=== PATIENT | male | born 1990 | race Caucasian/White ===

== ENCOUNTER 2016-05-31 16:51 | Emergency (ER) | payer BC, OTHER ==
[~2016-05-31] VITALS: Ht 170.2 cm; Wt 100.9 kg
[~2016-05-31 16:51] MED LIST: ATV1 PO; MRPSR30 PO; RXC5 PO
[2016-05-31 17:10] VITALS: TEMP 36.5; Ht 170.2 cm; Wt 100.9 kg
[2016-05-31] MEDS ORDERED: LISI-461 PO (17:28)
[2016-05-31] MEDS ORDERED: IBUP-1428 PO (17:29)
[2016-05-31] MEDS ORDERED: XYLOCAINE 1%/SOD BICARB 20 ML VIAL INFIL ONE (17:30)
--- NOTE | 2016-05-31 18:07 | EMERGENCY ROOM VISIT NOTE ---
ED Visit Note First contact with patient: 17:12 CHIEF COMPLAINT: Left thumb laceration at work today HISTORY OF PRESENT ILLNESS: Patient is a [id number] 26-year-old white male who presents emergency department for evaluation of a laceration to his left thumb that he sustained just prior to arrival. He cut himself on a sharp piece of metal at work. Bleeding is controlled. He denies the pain, numbness, tingling or weakness. His tetanus is up-to-date. REVIEW OF SYSTEMS: Review of systems as per HPI. All other systems reviewed were negative. At least 6 systems reviewed. PMH: Electronic medical records are reviewed and summarized as above/below. See Problem List. SOCIAL HISTORY: Patient lives at home. Positive chewing tobacco, drinks alcohol socially. PHYSICAL EXAM: Vital Signs: Reviewed Nurse's notes. There is a 1 cm long laceration on the palmar aspect of the left thumb over the MCP crease. The edges are gaping apart. There is no foreign material in the wound and it looks clean. There is no active bleeding. No deep structures such as tendons or nerves are seen in the base of the wound. Extension, flexion and abduction and adduction of the thumb is full and strong. Sensation to pain and light touch is intact. EMERGENCY DEPARTMENT COURSE: Using sterile technique, saline and Betadine cleansing, and 1% lidocaine anesthesia, the laceration was irrigated with saline and then repaired with 3 5-0 nylon sutures. There is no evidence for nerve, vascular or tendon injury. Problem List Medical Problems: (1) Asthma, Unspecified Status: Chronic (2) Hypertension Nos Status: Chronic (3) Lumbar disc herniation with radiculopathy Status: Resolved Surgical Problems: (1) History of lumbar fusion Status: Resolved Current/Historical Medications Scheduled Lisinopril (Zestril), 10 MG PO DAILY Scheduled PRN Ibuprofen (Motrin), 800 MG PO Q8H PRN for Pain Allergies Coded Allergies: No Known Allergies (Verified , 05/31/16) Vital Signs Date Time Temp Pulse Resp B/P Pulse Ox O2 Delivery O2 Flow Rate FiO2 05/31/16 18:29 64 18 132/81 97 Room Air 05/31/16 17:10 36.5 92 18 164/95 96 Room Air Departure Information Impression Primary Impression: Thumb laceration Additional Impression: Work related injury Referrals RV. Ram MD (PCP) Patient Instructions My [facility] Additional Instructions Keep wound clean and dry. Do not allow any crusting or dried blood to accumulate on sutures. If this occurs, use a 1:1 solution of hydrogen peroxide/ water on a Q-tip to clean the wound. Use an antibiotic ointment for 3-4 days, then let wound dry. Suture removal in 12-14 days. Return sooner for any signs of infection (increasing redness, swelling, drainage). Ice and elevate for swelling and pain. Ibuprofen 600 mg and Tylenol 1000 mg every 6 hrs for pain. Problem Qualifiers
[2016-05-31 18:29] VITALS: BP 132/81; PULSE 64; O2SAT 97
== END 2016-05-31 18:37 | disposition home or self-care (01) ==
LOC: C.EDB 16:51 → C.EDD 18:37
DX: S61.012A Laceration without foreign body of left thumb without damage to nail, initial encounter (principal); W45.8XXA Other foreign body or object entering through skin, initial encounter; F17.220 Nicotine dependence, chewing tobacco, uncomplicated; J45.909 Unspecified asthma, uncomplicated; I10 Essential (primary) hypertension; Z98.1 Arthrodesis status; Z79.899 Other long term (current) drug therapy

== ENCOUNTER 2016-06-13 23:21 | Emergency (ER) | payer OTHER, BC ==
[~2016-06-13] VITALS: Ht 170.2 cm; Wt 103.1 kg
[~2016-06-13 23:21] MED LIST changes: -ATV1 PO; +IBUP-1428 PO; +LISI-461 PO; -MRPSR30 PO; -RXC5 PO
[2016-06-13 23:24] VITALS: BP 158/108; PULSE 90; TEMP 36.7; O2SAT 96; Ht 170.2 cm; Wt 103.1 kg
--- NOTE | 2016-06-13 23:36 | EMERGENCY ROOM VISIT NOTE ---
ED Visit Note First contact with patient: 23:27 CHIEF COMPLAINT: Suture removal This patient returns to the ED today for removal of sutures that were placed 13 days ago. There has been no swelling, redness, or drainage from the wound. The patient feels like the laceration is healing well. REVIEW OF SYSTEMS: Head: No headache, injury or neck pain. Skin: No rash, new lesions, or masses. General: No fever or chills, fatigue, loss of appetite , or significant recent weight gain or loss. PMH: The patient is healthy; there is no significant medical or surgical history. SOCIAL HISTORY: Patient lives at home. PHYSICAL EXAM: Vital Signs: Reviewed Nurse's notes. There is a sutured wound on the palmar aspect of the left thumb with no signs of infection. There is no erythema, swelling, or tenderness. EMERGENCY DEPARTMENT COURSE: The sutures were removed without any difficulty and there was no separation of the wound edges. DIAGNOSIS: Healing laceration and suture removal DISCHARGE INSTRUCTIONS AND TREATMENT: Wash any remaining crusts off of the wound today and resume your normal activities. Problem List Medical Problems: (1) Asthma, Unspecified Status: Chronic (2) Hypertension Nos Status: Chronic (3) Lumbar disc herniation with radiculopathy Status: Resolved Surgical Problems: (1) History of lumbar fusion Status: Resolved Current/Historical Medications Scheduled Lisinopril (Zestril), 10 MG PO DAILY Scheduled PRN Ibuprofen (Motrin), 800 MG PO Q8H PRN for Pain Allergies Coded Allergies: No Known Allergies (Verified , 06/13/16) Vital Signs Date Time Temp Pulse Resp B/P Pulse Ox O2 Delivery O2 Flow Rate FiO2 06/13/16 23:24 36.7 90 18 158/108 96 Room Air Departure Information Impression Primary Impression: Encounter for removal of sutures Referrals No Doctor, Assigned (PCP) [facility]
== END 2016-06-13 23:39 | disposition home or self-care (01) ==
LOC: C.EDB 23:22
DX: Z48.02 Encounter for removal of sutures (principal); S61.012D Laceration without foreign body of left thumb without damage to nail, subsequent encounter; X58.XXXD Exposure to other specified factors, subsequent encounter; J45.909 Unspecified asthma, uncomplicated; I10 Essential (primary) hypertension; Z98.1 Arthrodesis status; Z79.899 Other long term (current) drug therapy

== ENCOUNTER 2023-06-27 11:09 | Inpatient (IN) ==
--- NOTE | 2023-06-27 11:34 | Emergency Department Note ---
Impression & Plan Atrial fibrillation with rapid ventricular response, Leukocytosis, Hypokalemia ED Provider Note NAME: WADE CHATMAN AGE: 33 SEX: M : 1990 ARRIVES VIA: Walk-In INFORMANT: Patient ED PROVIDER(S): Eugene Mccormick DO CHIEF COMPLAINT: cough and shortness of breath HPI: Patient is a 33-year-old male with a past medical history of depression, eczema, anxiety, hypertension and asthma who presents to the ER for symptoms that initially started on with a fever and a cough. He notes he has not had a fever since then. He has had some shortness of breath and feels his heart racing. He is winded with any movement. Does have a history of hypertension. He does drink alcohol fairly regularly. Denies any headache or change in vision. No chest pain but does have shortness of breath. No dysuria urgency or frequency. Denies any history of diabetes, hyperlipidemia or smoking currently. Last smoked about 10 years ago. Does have hypertension. No recent trips, travel, swelling of his calfs, history of blood clots, or coughing up blood. ADDITIONAL HISTORY OBTAINED: Per HPI Chronic Medical/Social Conditions Affecting Care: Per HPI PAST MEDICAL HISTORY:See Below PAST SURGICAL HISTORY:See Below FAMILY HISTORY:See Below SOCIAL HISTORY:See Below HOME MEDICATIONS:See Below ALLERGIES:See Below VITALS:See Below PHYSICAL EXAMINATION: GENERAL: Sitting up in bed, alert, well appearing, well nourished, no distress, non-toxic EYE EXAM: normal conjunctiva. OROPHARYNX: mucous membranes are moist NECK: supple, no nuchal rigidity, no adenopathy, non-tender LUNGS: Clear to auscultation. Normal chest wall mechanics HEART: Tachycardic and irregular regular, S1 normal and S2 normal ABDOMEN: abdomen soft, non-tender, normo-active bowel sounds, no masses, no rebound or guarding. BACK: Back is symmetrical on inspection and there is no deformity, no midline tenderness, no CVA tenderness. SKIN: no rashes and no bruising UPPER EXTREMITIES: upper extremities are grossly normal. LOWER EXTREMITIES: No pitting edema. Calves are equal bilaterally NEURO EXAM: Normal sensorium, cranial nerves II-XII grossly intact, normal speech, no gross weakness of arms, no gross weakness of legs. MEDICAL DECISION MAKING: Patient is a 33-year-old male who presents ER for above-stated complaint. IV was established blood work was obtained. Labs show leukocytosis of 21,000. No significant anemia. BMP with mild hypokalemia 3.3. Bilirubin was unremarkable. Troponin was negative. CRP up at 2.3. Pro-Dustin was normal. Alcohol negative. Tox was negative. Chest x-ray was negative. Patient was given IV fluids and following this he was placed on Cardizem drip and given a bolus. Heart rate trended down to the 130s from 180s. With the leukocytosis to cover with a dose of IV antibiotics. Question of this secondary to the steroid injections but cannot be certain. Discussed case with the hospitalist for further evaluation management treatment. Consults/Care Managements Discussions: Per MDM Triage Nursing notes reviewed. Limited review of prior medical records performed Vital Signs: reviewed and remarkable for tachycardic Differential diagnosis: Differential diagnoses includes but is not limited to pneumonia, bronchitis, COPD/Asthma exacerbation, pneumothorax, pulmonary embolism, congestive heart failure, acute coronary syndrome ER treatment provided: See below Diagnostics interpreted by me include EKG and cardiac monitoring as listed below: -Cardiac Monitoring: An order was placed for continuous cardiac monitoring. The monitor shows a rate of 180 with sinus rhythm. -ECG: A-fib rate of 182 Normal axis and no PVCs QTc 410 -Laboratory studies:Interpreted by me as stated above in MDM and shown below. Imaging studies: Xrays: As interpreted by me: Portable AP upright 1 view of the chest shows no focal infiltrate CTs show: none Procedures:none Critical Care: I have personally spent 35 minutes of critical care time in the direct management of this patient. This includes bedside care, interpretation of diagnostic studies, and testing, discussion with consultants, patient, and family members, and other required patient management activities. This 35 minutes is in excess of all separately billable procedures. Past Med/Surg History Problem List (Updated 06/27/23 @ 15:58 by Eugene Mccormick DO) Hypokalemia (Acute) Leukocytosis (Acute) Atrial fibrillation with rapid ventricular response (Acute) Pneumonia Leukocytosis Hypokalemia Atrial fibrillation with RVR Rash and nonspecific skin eruption Daytime somnolence Snoring Depression Non-alcoholic fatty liver disease Eczema Chronic thumb pain, bilateral Anxiety Hypertension (Acute) Allergic rhinitis (Acute) Asthma (Acute) Medical History Abdominal pain Allergic rhinitis Anxiety Asthma Depression Hypertension Strabismus Surgical History H/O laminectomy H/O sinus surgery History of back surgery Family History Grandfather (Maternal) Pancreatic cancer Uncle Myocardial infarction Grandfather (Paternal) Stroke Hypertension Father Hypertension Mother Atrial fibrillation Denies family history of Ovarian cancer Prostate cancer Breast cancer Colorectal cancer Social History (Updated 03/08/23 @ 16:03 by Kaelyn Guardado) Smoking Status: Former smoker Second Hand Exposure: No; Do You Dip or Chew Tobacco: No; Hx Alcohol Use: Yes Alcohol type: hard liquor Alcohol Intake Frequency: 4 or More x per/Week Hx Substance Use: No Preferred Language: Spanish Communication Ability: Effective Visual Impairment: Limited Hearing Ability: Normal Beater Room Supervisor Required: No Beliefs That Will Affect Care: None marital status: Current Living Situation: Spouse current occupational status: employed Feels Safe at Home: Yes Childhood Exposure to Second-Hand Smoke: Yes caffeine: Yes Dental Care, Regularly: Yes Physical Activity Frequency: Does not Exercise Seatbelt Use: always Sunscreen Use: Yes Assistive Devices: Glasses Allergies Allergies Allergy/AdvReac Type Severity Reaction Status Date / Time No Known Allergies Allergy Mild Verified 06/27/23 13:52 Home Meds Previous Rx's Medication Instructions Recorded triamcinolone acetonide 0.5 % 1 applic topical BID PRN Skin 03/08/23 topical ointment Irritation #15 grams valsartan 160 mg tablet 160 mg PO DAILY #30 tabs 03/31/23 Results & Data (ED) Vital Signs Vital Signs - 24 hr 06/27/23 11:10 06/27/23 11:18 06/27/23 11:18 Temperature 35.8 C L Temperature Source Temporal Artery Scan Pulse Rate 82 Pulse Rate [Apical] 185 H Pulse Rhythm Regular Pulse Strength Normal Respiratory Rate 20 16 Respiratory Effort / Characteristics Non-Labored Non-Labored Respiratory Depth Normal Normal Respiratory Pattern Regular Blood Pressure 144/101 H Blood Pressure [Right Arm] 130/97 Blood Pressure Mean 115 Blood Pressure Mean [Right Arm] 108 Blood Pressure Position Sitting Pulse Oximetry 95 96 96 Oxygen Delivery Method Room Air Room Air Room Air Sepsis Recent Fever Within 48 Hours No Sepsis New/Unexplained Change in Mental Status N/A Sepsis Action Taken by Nursing No Action Required 06/27/23 11:18 06/27/23 11:27 06/27/23 11:28 Temperature Temperature Source Pulse Rate 188 H Pulse Rate [Apical] Pulse Rhythm Pulse Strength Respiratory Rate Respiratory Effort / Characteristics Respiratory Depth Respiratory Pattern Blood Pressure Blood Pressure [Right Arm] Blood Pressure Mean Blood Pressure Mean [Right Arm] Blood Pressure Position Pulse Oximetry 96 96 Oxygen Delivery Method Room Air Room Air Sepsis Recent Fever Within 48 Hours Sepsis New/Unexplained Change in Mental Status Sepsis Action Taken by Nursing 06/27/23 11:30 06/27/23 11:33 06/27/23 11:36 Temperature 37.1 C 37.1 C Temperature Source Axillary Axillary Pulse Rate 187 H Pulse Rate [Apical] Pulse Rhythm Pulse Strength Respiratory Rate 23 Respiratory Effort / Characteristics Respiratory Depth Respiratory Pattern Blood Pressure 130/97 Blood Pressure [Right Arm] Blood Pressure Mean 108 Blood Pressure Mean [Right Arm] Blood Pressure Position Pulse Oximetry 96 Oxygen Delivery Method Room Air Sepsis Recent Fever Within 48 Hours Sepsis New/Unexplained Change in Mental Status Sepsis Action Taken by Nursing 06/27/23 13:00 Temperature Temperature Source Pulse Rate 148 H Pulse Rate [Apical] Pulse Rhythm Pulse Strength Respiratory Rate 21 Respiratory Effort / Characteristics Respiratory Depth Respiratory Pattern Blood Pressure 140/90 Blood Pressure [Right Arm] Blood Pressure Mean 106 Blood Pressure Mean [Right Arm] Blood Pressure Position Pulse Oximetry 93 Oxygen Delivery Method Room Air Sepsis Recent Fever Within 48 Hours Sepsis New/Unexplained Change in Mental Status Sepsis Action Taken by Nursing Laboratory Data 06/27/23 11:27 06/27/23 11:27 Lab Results 06/27/23 Range/Units 11:27 WBC 21.11 H (4.8-10.8) K/ul RBC 5.34 (4.70-6.10) M/uL Hgb 16.3 (14.0-18.0) g/dl Hct 46.7 (42.0-52.0) % MCV 87.5 (80.0-100.0) fL MCH 30.5 (25.0-34.0) pg MCHC 34.9 (32.0-36.0) g/dL RDW Std Deviation 41.1 (36.4-46.3) fL RDW Coeff of Chanel 13.1 (11.5-14.5) % Plt Count 283 (130-400) K/uL MPV 9.5 (9.4-12.4) fL Immature Gran % (Auto) 0.6 % Neut % (Auto) 79.9 % Lymph % (Auto) 9.8 % [place] % (Auto) 9.3 % Eos % (Auto) 0.1 % Baso % (Auto) 0.3 % Neut # (Auto) 16.86 H (1.40-6.50) K/uL Lymph # (Auto) 2.06 (1.20-3.40) K/uL [place] # (Auto) 1.97 H (0.11-0.59) K/uL Eos # (Auto) 0.02 (0.00-0.50) K/uL Baso # (Auto) 0.07 (0.00-0.20) K/uL Immature Gran # (Auto) 0.13 (0.01-0.20) K/uL Sodium 141 (136-145) mmol/L Potassium 3.3 L (3.5-5.1) mmol/L Chloride 107 (98-107) mmol/L Carbon Dioxide 25 (21-32) mmol/L Anion Gap 9 (3-11) BUN 15 (6-23) mg/dl Creatinine 1.06 (0.6-1.4) mg/dl Est Cr Clr Drug Dosing 122.8 ml/min Est GFR ( Amer) 105.6 ml/min Est GFR (Non-Af Amer) 91.1 ml/min BUN/Creatinine Ratio 14.2 (10-20) Glucose 114 H (70-99(Fasting)) mg/dl Calcium 9.2 (8.6-10.3) mg/dl Magnesium 2.0 (1.7-2.4) mg/dl Total Bilirubin 0.9 (0.2-1.0) mg/dl AST 46 H (13-39) U/L ALT 70 H (7-52) U/L Alkaline Phosphatase 59 (34-104) U/L Troponin I High Sens 18.3 (0-20) pg/ml C-Reactive Protein 2.32 H (0-0.5) mg/dl Total Protein 7.1 (6.0-8.3) gm/dl Albumin 4.2 (3.4-5.0) gm/dl Globulin 2.9 (2.5-4.0) gm/dl Albumin/Globulin Ratio 1.4 (0.9-2) Lipase 12 (11-82) U/L Procalcitonin 0.04 (0-0.5) ng/ml TSH 4.095 (0.300-4.500) uIu/ml Adenovirus (PCR) Not Detected (NotDetected) B. pertussis DNA (PCR) Not Detected (NotDetected) B.parapertussis DNA PCR Not Detected (NotDetected) C. pneumoniae DNA (PCR) Not Detected (NotDetected) Coronavirus OC43 (PCR) Not Detected (NotDetected) Coronavirus HKU1 (PCR) Not Detected (NotDetected) Coronavirus 229E (PCR) Not Detected (NotDetected) SARS-CoV-2 (PCR) Not Detected (NotDetected) Coronavirus NL63 (PCR) Not Detected (NotDetected) Human Metapneumovir PCR Not Detected (NotDetected) Influenza Type A (PCR) Not Detected (NotDetected) Influenza Type B (PCR) Not Detected (NotDetected) M. pneumoniae (PCR) Not Detected (NotDetected) Parainfluenza 1 (PCR) Not Detected (NotDetected) Parainfluenza 2 (PCR) Not Detected (NotDetected) Parainfluenza 3 (PCR) Not Detected (NotDetected) Parainfluenza 4 (PCR) Not Detected (NotDetected) RSV (PCR) Not Detected (NotDetected) Entero/Rhino (PCR) Not Detected (NotDetected) Administered Medications Diltiazem HCl 125 mg/ Dextrose 125 mls @ 5 mls/hr IV .Q24H [facility]; Protocol Stop: 07/27/23 11:29 Last Admin: 06/27/23 11:47 Dose: 5 mg/hr, 5 mls/hr Documented By: ERICKA Co-signed By: VANGIE Discontinued Medications Diltiazem HCl (Diltiazem Hcl 5 Mg/Ml 5 Ml Vial) 10 mg IV NOW STA Stop: 06/27/23 11:29 Last Admin: 06/27/23 11:37 Dose: 10 mg Documented By: VANGIE Co-signed By: ERICKA Ceftriaxone Sodium (Rocephin) 2,000 mg in 50 mls @ 100 mls/hr IV NOW STA Stop: 06/27/23 13:57 Last Infusion: 06/27/23 14:32 Dose: Infused Documented By: Admin: 06/27/23 14:00 Dose: 100 mls/hr Documented By: MELANIE Sodium Chloride (Nss) 1,000 mls @ 999 mls/hr IV .Q1H1M ONE Stop: 06/27/23 14:29 Last Infusion: 06/27/23 15:35 Dose: Infused Documented By: Admin: 06/27/23 14:01 Dose: 999 mls/hr Documented By: MELANIE Miscellaneous (Stat Iv Infusion Titration Per Protocol) 1 each N/A NOW STA Stop: 06/27/23 11:29 Last Admin: 06/27/23 11:38 Dose: Not Given Documented By: ES Potassium Chloride (Potassium Chloride Crtab 20 Meq Tabcr) 40 meq PO NOW STA Stop: 06/27/23 13:28 Last Admin: 06/27/23 14:00 Dose: 40 meq Documented By: MELANIE Imaging Data Radiologist's Impression: Chest X-Ray 06/27/23 11:23 XR chest 1V portable HISTORY: Chest pain, nonspecific COMPARISON: Chest 02/22/2014. FINDINGS: No pneumothorax. No pleural effusions. The cardiac silhouette is borderline enlarged. This may be accentuated by the AP portable technique. The left lung is clear. No evidence for pulmonary edema. No acute fractures. Mild interstitial thickening at the right lung base. IMPRESSION: Mild interstitial thickening at the right lung base. This could be due to the low lung volumes or a mild interstitial pneumonitis. ACT 112: Negative or not required by law. Electronically signed by: Adalid Sparks M.D. 06/27/2023 12:10 PM Discharge Plan Visit Data Chief Complaint: Cardiac Assessment Stated Complaint: SOB, ILLNESS, CHEST PRESSURE ED Provider: Eugene Mccormick Discharge Problem: Atrial fibrillation with rapid ventricular response, Leukocytosis, Hypokalemia Patient Disposition: Admitted As Inpatient Discharge Instructions Interventions: ED Discharge Assessment Last Done: 06/27/23 14:45 Discharge Problem: Leukocytosis Qualifiers: Leukocytosis type: unspecified Qualified Code(s): D72.829 - Elevated white blood cell count, unspecified
[2023-06-27] MEDS: dilTIAZem HCl 5 MG/ML 5 ML VIAL IV STA (11:37)
[2023-06-27] MEDS: STAT IV Infusion **Titration per Protocol STA (11:38)
[2023-06-27] MEDS: dilTIAZem HCL 125 MG in DEXTROSE 5% 100 ML IV SCH (11:47)
[2023-06-27 11:49] LABS: Basophils # (auto) 0.07 K/uL (0.00-0.20); Basophils % (auto) 0.3 %; Eosinophils # (auto) 0.02 K/uL (0.00-0.50); Eosinophils % (auto) 0.1 %; Hematocrit (blood only) 46.7 % (42.0-52.0); Hemoglobin 16.3 g/dl (14.0-18.0); Immature Granulocytes # (auto) 0.13 K/uL (0.01-0.20); Immature Granulocytes % (auto) 0.6 %; Lymphocytes # (auto) 2.06 K/uL (1.20-3.40); Lymphocytes % (auto) 9.8 %; Mean Corpuscular Hemoglobin 30.5 pg (25.0-34.0); Mean Corpuscular Hgb Conc 34.9 g/dL (32.0-36.0); Mean Corpuscular Volume 87.5 fL (80.0-100.0); Mean Platelet Volume 9.5 fL (9.4-12.4); Monocytes # (auto) 1.97 K/uL (0.11-0.59); Monocytes % (auto) 9.3 %; Neutrophils # (auto) 16.86 K/uL (1.40-6.50); Neutrophils % (auto) 79.9 %; Platelet Count 283 K/uL (130-400); RDW Coefficient of Variation 13.1 % (11.5-14.5); RDW Standard Deviation 41.1 fL (36.4-46.3); Red Blood Count 5.34 M/uL (4.70-6.10); White Blood Count 21.11 K/ul (4.8-10.8)
[2023-06-27 12:05] LABS: Albumin Globulin Ratio 1.4 (0.9-2); Albumin Level 4.2 gm/dl (3.4-5.0); BUN Creatinine Ratio 14.2 (10-20); Bilirubin,Total 0.9 mg/dl (0.2-1.0); Calcium 9.2 mg/dl (8.6-10.3); Creatinine Clr Calc Pharmacy 122.8 ml/min; Est GFR (African American) 105.6 ml/min; Est GFR (Non-African American) 91.1 ml/min; Globulin 2.9 gm/dl (2.5-4.0); Potassium 3.3 mmol/L (3.5-5.1); Total Protein 7.1 gm/dl (6.0-8.3)
[2023-06-27 12:10] LABS: Troponin I High Sensitivity 18.3 pg/ml (0-20)
--- NOTE | 2023-06-27 12:12 | XRay Report ---
XR chest 1V portable HISTORY: Chest pain, nonspecific COMPARISON: Chest 02/22/2014. FINDINGS: No pneumothorax. No pleural effusions. The cardiac silhouette is borderline enlarged. This may be accentuated by the AP portable technique. The left lung is clear. No evidence for pulmonary ed claudia. No acute fractures. Mild interstitial thickening at the right lung base. IMPRESSION: Mild interstitial thickening at the right lung base. This could be due to the low lung volumes or a m ild interstitial pneumonitis. ACT 112: Negative or not required by law. Electronically signed by: Adalid Sparks M.D. 06/27/2023 12:10 PM
[2023-06-27 12:38] LABS: Adenovirus PCR Not Detected (NotDetected); Bordetella parapertussis PCR Not Detected (NotDetected); Bordetella pertussis PCR Not Detected (NotDetected); Chlamydia pneumoniae PCR Not Detected (NotDetected); Coronavirus 229E PCR Not Detected (NotDetected); Coronavirus CoV-2 (COVID19)PCR Not Detected (NotDetected); Coronavirus HKU1 PCR Not Detected (NotDetected); Coronavirus NL63 PCR Not Detected (NotDetected); Coronavirus OC43PCR Not Detected (NotDetected); Human Metapneumovirus PCR Not Detected (NotDetected); Influenza A PCR Not Detected (NotDetected); Influenza B PCR Not Detected (NotDetected); Mycoplasma pneumoniae PCR Not Detected (NotDetected); Parainfluenza Virus 1 PCR Not Detected (NotDetected); Parainfluenza Virus 2 PCR Not Detected (NotDetected); Parainfluenza Virus 3 PCR Not Detected (NotDetected); Parainfluenza Virus 4 PCR Not Detected (NotDetected); Respiratory Syncytial VirusPCR Not Detected (NotDetected); Rhinovirus/Enterovirus PCR Not Detected (NotDetected)
--- NOTE | 2023-06-27 12:52 | Electrocardiogram Report ---
Test Reason : Blood Pressure : / mmHG Vent. Rate : 182 BPM Atrial Rate : 000 BPM P-R Int : 000 ms QRS Dur : 090 ms QT Int : 236 ms P-R-T Axes : 000 034 -69 degrees QTc Int : 410 ms Atrial fibrillation with rapid ventricular response Nonspecific T wave abnormality Abnormal ECG When compared with ECG of 22-FEB-2014 10:56, Atrial fibrillation has replaced Sinus rhythm Vent. rate has increased BY 72 BPM Confirmed by Marcus Lira ([id number]) on 06/27/2023 12:51:52 PM Referred By: Confirmed By:Marcus Lira
--- NOTE | 2023-06-27 13:00 | History & Physical Report ---
Date of Service June 27, 2023 Assessment & Plan (1) Atrial fibrillation with RVR: Plan: Patient presented for worsening SOB, productive cough, hemoptysis, and fatigue that began on 06/22 EKG on arrival revealed atrial fibrillation with RVR at 182bpm No prior history of atrial fibrillation to the patient's knowledge Troponin WNL TSH WNL D-dimer (+); CTA w/o PE Echocardiogram ordered, pending Patient is not currently on anticoagulation [id number] score: 1 (hx of HTN); potentially 2 in the setting of acute HF (pulmonary edema on CTA) Will plan to continue diltiazem drip until rate controlled, then may need to transition to metoprolol tartrate p.o. DDx: Pneumonia provoking new onset A-fib, upper respiratory infection, PE, alcohol use, and idiopathic atrial fib, among other etiologies Cardiology consulted A.m. CBC, CMP, CRP, Mag, A1c (2) Pneumonia: Plan: Leukocytosis at 21.11 with neutrophil predominance; afebrile Patient does note he had a low-grade fever on 06/22 (around 99.5 F at home) Unclear if this is secondary to a steroid injection patient received in his right shoulder on Friday 06/23, or an underlying infection BioFire negative Procalcitonin WNL Elevated CRP at 2.32 Sputum culture ordered, pending Rocephin 2000 mg IV q24h Azithromycin 500 mg IV q24h; QTc 410 Follow blood cultures (3) Hypokalemia: Plan: Mild; K 3.3 on arrival Potassium supplementation 40mEq p.o. given Recheck a.m. CMP (4) Hypertension: Plan: Hold valsartan for now Will start patient on metoprolol tartrate 25 mg p.o. q6h (5) Asthma: Plan: Hx of asthma as a child, but patient denies requiring an albuterol inhaler in the past 20 years or so (6) Heart failure with acute decompensation, type unknown: (7) Alcohol use disorder: Plan Disposition: Admit to PCU telemetry Full code AHA diet VTE PPx: Heparin IV History of Present Illness Chief Complaint: Cardiac assessment Primary Care Provider: PRATEEK Robins is a 33-year-old male with PMH of asthma, HTN, anxiety, depression, eczema, and allergic rhinitis. He presented for SOB, fatigue, cough, and chest pressure on 06/26. He claims that it feels like an "elephant is sitting on his chest". Patient reports that his symptoms started on morning 06/22 when he developed a low-grade fever at 99.5 F at home. He also had productive cough (yellow sputum production). Patient then received a steroid injection in his right shoulder on Tuesday. He felt that the fever was going away, but then developed difficulty breathing Tuesday night and by Tuesday morning it felt like a "elephant was sitting on his chest". Patient also endorses multiple episodes of hemoptysis over the weekend; endorses bright red blood in his cough. He has been taking DayQuil and NyQuil for his symptoms. Patient endorses both SOB at rest and with exertion, and he reports that it feels like he is "running a marathon" whenever he does simple things such as walking. No personal history of atrial fibrillation, TX, DVT/PE, diabetes, stroke, CHF, hyperlipidemia, or vascular disease to his knowledge. Patient only takes valsartan on a regular basis; last took the morning of 06/26. He did not take any Tylenol for his fever . He does occasionally take Benadryl for his allergies and ibuprofen as needed for aches and pains (pain management for his herniated disc). He denies ibuprofen use in the past week. Patient does have a history of asthma as a child, but has not needed his albuterol inhaler in around 20 years. He reports that coughing hurts his lower rib cages bilaterally. 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 Patient also has 2 children at home (ages 10 and 13 years old). No supplemental oxygen use at home. No CPAP at night, but the patient does have a sleep study upcoming. Patient is a former tobacco cigarette smoker, but quit 14 years ago; he also used to chew snuff. Patient does endorse alcohol use, with his last drink being on Friday 06/23; he reports that he drank 2 shots of whiskey and some beers; sometimes drinks multiple days per week. Patient is tachycardic at 148 bpm at time of admission; SpO2 93% on RA. ED course: Diltiazem 10 mg IV Diltiazem drip IV NSS 1000 mL IV ROS: Patient endorses low-grade fever (resolved), chills, productive cough (yellow), hemoptysis, chest pressure, SOB at rest and with exertion, pleuritic CP, and wheezing. Patient denies dizziness, lightheadedness, ROSARIO, changes in vision, chest pain, chest palpitations, abdominal pain, N/V/D, change in urinary/bowel habits, burning with urination, blood in stool, or N/T/pain in arms or legs. Allergies Allergy/AdvReac Type Severity Reaction Status Date / Time No Known Allergies Allergy Mild Verified 06/27/23 13:52 Home Medications Medication Instructions Recorded Confirmed Type triamcinolone acetonide 0.5 % 1 applic topical BID PRN Skin 03/08/23 06/27/23 Rx topical ointment Irritation #15 grams valsartan 160 mg tablet 160 mg PO DAILY #30 tabs 03/31/23 06/27/23 Rx Past Med/Surg History Problem List (Updated 06/28/23 @ 11:13 by Kiran Rogers MD) Alcohol use disorder Heart failure with acute decompensation, type unknown Hypokalemia (Acute) Leukocytosis (Acute) Atrial fibrillation with rapid ventricular response (Acute) Pneumonia Leukocytosis Hypokalemia Atrial fibrillation with RVR Rash and nonspecific skin eruption Daytime somnolence Snoring Depression Non-alcoholic fatty liver disease Eczema Chronic thumb pain, bilateral Anxiety Hypertension (Acute) Allergic rhinitis (Acute) Asthma (Acute) Medical History Abdominal pain Allergic rhinitis Anxiety Asthma Depression Hypertension Strabismus Surgical History H/O laminectomy H/O sinus surgery History of back surgery Family History Grandfather (Maternal) Pancreatic cancer Uncle Myocardial infarction Grandfather (Paternal) Stroke Hypertension Father Hypertension Mother Atrial fibrillation Denies family history of Ovarian cancer Prostate cancer Breast cancer Colorectal cancer Social History (Updated 03/08/23 @ 16:03 by Kaelyn Guardado) Smoking Status: Former smoker Second Hand Exposure: No; Do You Dip or Chew Tobacco: No; Hx Alcohol Use: Yes Alcohol type: hard liquor Alcohol Intake Frequency: 4 or More x per/Week Hx Substance Use: No Preferred Language: Portuguese Communication Ability: Effective Visual Impairment: Limited Hearing Ability: Normal Lag Screwer Required: No Beliefs That Will Affect Care: None marital status: Current Living Situation: Spouse current occupational status: employed Other Information That Helps Us Care for You: No Feels Safe at Home: Yes Childhood Exposure to Second-Hand Smoke: Yes caffeine: Yes Dental Care, Regularly: Yes Physical Activity Frequency: Does not Exercise Seatbelt Use: always Sunscreen Use: Yes Assistive Devices: Glasses Review of Systems Review of Systems: See HPI above Physical Exam Physical Exam: General: Mild respiratory distress; non-toxic appearing; well-nourished; anxious; cooperative; SpO2 96% on RA HEENT: normocephalic, atraumatic; no scleral icterus; PERRLA; strabismus; moist mucus membrane; vision and hearing grossly intact Neck: supple; no lymphadenopathy; trachea midline Skin: Diaphoretic; warm, without signs of tenting; no cyanosis; no rashes, bruising, lesions, or erythema noted CV: chest wall NTP; irregularly irregular rhythm tachycardic around 160 bpm; S1/S2 normal; no murmurs/rubs/gallops; pulses intact and symmetric at radial, DP, and PT Lungs: Mild respiratory distress; dry cough; symmetrical chest wall expansion; diminished breath sounds in the lower lung cuab bilaterally; mild expiratory wheeze ABD: Soft, NTP; BS present; no rebound/guarding; no distention MSK: no tics or fasciculations; +1 pitting edema noted in the LEs b/l, nonerythematous Neuro: A&Ox3; normal mood and affect; fluent speech; no focal deficits; sensation grossly intact in the LEs b/l Results & Data Results & Data Vital Signs (Past 12 Hours) Vital Signs Temp Pulse Pulse Resp BP BP Pulse Ox 06/27/23 11:36 37.1 C 06/27/23 11:33 37.1 C 06/27/23 11:28 188 H 06/27/23 11:27 96 06/27/23 11:18 96 06/27/23 11:18 185 H 16 130/97 96 06/27/23 11:18 96 06/27/23 11:10 35.8 C L 82 20 144/101 H 95 O2 Del Method 06/27/23 11:36 06/27/23 11:33 06/27/23 11:28 06/27/23 11:27 Room Air 06/27/23 11:18 Room Air 06/27/23 11:18 Room Air 06/27/23 11:18 Room Air 06/27/23 11:10 Room Air Laboratory Results Abnormal lab results 06/27/23 Range/Units 11:27 WBC 21.11 H (4.8-10.8) K/ul Neut # (Auto) 16.86 H (1.40-6.50) K/uL [place] # (Auto) 1.97 H (0.11-0.59) K/uL Potassium 3.3 L (3.5-5.1) mmol/L Glucose 114 H (70-99(Fasting)) mg/dl AST 46 H (13-39) U/L ALT 70 H (7-52) U/L Diagnostic Findings Chest X-Ray 06/27/23 11:23 XR chest 1V portable HISTORY: Chest pain, nonspecific COMPARISON: Chest 02/22/2014. FINDINGS: No pneumothorax. No pleural effusions. The cardiac silhouette is borderline enlarged. This may be accentuated by the AP portable technique. The left lung is clear. No evidence for pulmonary edema. No acute fractures. Mild interstitial thickening at the right lung base. IMPRESSION: Mild interstitial thickening at the right lung base. This could be due to the low lung volumes or a mild interstitial pneumonitis. ACT 112: Negative or not required by law. Electronically signed by: Adalid Sparks M.D. 06/27/2023 12:10 PM ECG Additional Comments: EKG on arrival revealed atrial fibrillation with RVR at 182bpm; QTc 410 Code Status & VTE Plan Code Status Full code VTE Prophylaxis Plan VTE Prophylaxis will be ordered: Yes Supervising Physician Co-Signing Physician Notes I personally saw and examined the patient. I independently reviewed the labs, EKG, imaging, problem list, medication list, past medical history and family history. I verified all acosta points and agree with Adalid Cramer PA-C with the following exceptions and/or additions: 33 year old male presents to the ER with chest pain and shortness of breath. Fever and cough yellow sputum . Tuesday steroid injection. Tuesday chest pressure and shortness of breath especially on exertion started. O/E Anxious appearing, A&Ox3, HS increased rate, irregular rhythm, no murmurs, Chest bibasal crackles, Abdo SNT, trace pedal edema b/l equal A/P A. fib RVR - appears inappropriate rate. ?exacerbated by viral illness, steroid injection and alcohol. Given heart failure (although this may not be chronic) he scores 2 for [id number] in addition we have not been very successful with rate control despite metoprolol and IV diltiazem therefore will start heparin to as plan is looking more like cardioversion in which case he needs to be on anticoagulation irregardless of [id number]. TSH WNL. TTE ordered for tomorrow once rates are improved. Acute heart failure with unknown ejection fraction- suspect rate related and should get better with just rate control as long as TTE normal. Give ongoing shortness of breath despite better rate though will give a dose of Lasix 20mg IV now. Pneumonia - ruled out, procalcitonin negative and no consolidation on CT. Will discontinue further antibiotics. Suspect leukocytosis due to steroid injection Anxiety - previous use of Zoloft, will use lorazepam as needed but highly consider going back on this as outpatient. Alcohol use disorder - no prior history of alcohol withdrawal. He appears keen to stop daily use of this. PG Care Time/CCT Total # of Minutes Spent Total Time Spent with Patient: Total time spent is greater than 50% in coordination of care (as documented) at patient's floor/unit and/or counseling patient: [place] [address] INT INP/OBS CARE 3/75MIN Patient Type New Medical Decision Making High Complexity Diagnoses Atrial fibrillation with RVR I48.91 Pneumonia J18.9 Hypokalemia E87.6 Hypertension I10 Asthma J45.909 Heart failure with acute decompensation, type unknown I50.9 Alcohol use disorder F10.90
[2023-06-27 13:40] LABS: Thyroid Stimulating Hormone 4.095 uIu/ml (0.300-4.500)
[2023-06-27 13:55] LABS: C Reactive Protein 2.32 mg/dl (0-0.5)
[2023-06-27] MEDS: cefTRIAXone SODIUM 2,000 MG/50 ML BAG IV STA ×2 (14:00→19:33)
[2023-06-27] MEDS: POTASSIUM CHLORIDE CRTAB 20 MEQ TABCR PO STA (14:00)
[2023-06-27] MEDS: SODIUM CHLORIDE 0.9% 1,000 ML IV ONE (14:01)
[2023-06-27 15:08] LABS: Partial Thromboplastin Time 28 Seconds (21-31); Prothrombin Time 10.8 Seconds (9.0-12.0)
[2023-06-27 15:24] LABS: D Dimer 560 ug/L FEU (0-500)
[2023-06-27] MEDS ORDERED: ACETAMINOPHEN 325 MG TAB PO PRN (15:31)
[2023-06-27] MEDS ORDERED: ONDANSETRON INJ 2 MG/ML 2 ML VIAL IV PRN (15:31)
[2023-06-27] MEDS: OPTIRAY 320 125ml IV ONE (16:40)
--- NOTE | 2023-06-27 17:03 | CT Scan Report ---
CT ANGIOGRAPHY OF THE CHEST, PULMONARY EMBOLUS PROTOCOL CLINICAL HISTORY: Shortness of breath. Elevated d-dimer. Atrial fibrillation. COMPARISON STUDY: Chest radiographs July or 2014 and June 27, 2023. TECHNIQUE: Following IV administration of 118 mL of Optiray, helical axial images of the chest were o btained utilizing the pulmonary embolus protocol. Maximal intensity projections and sagittal and cor onal reformats were viewed on an independent 3D workstation. IV contrast was administered without co mplication. Automated exposure control was utilized for the study. A dose lowering technique was ut ilized adhering to the principles of ALARA. CT DOSE: 841.4 mGy.cm FINDINGS: No pulmonary emboli are identified although the subsegmental pulmonary arteries within the lower lobes are suboptimally opacified. The heart is mildly enlarged. There is no pericardial effusi on. Mildly enlarged mediastinal and bilateral hilar lymph nodes are present. Index subcarinal lymph n ode on image 109 of 270 measures 1.9 x 1.2 cm. There is no pneumothorax. Small bilateral pleural effu sions are present. Interlobular septal thickening is noted. There are groundglass and nodular opaciti es within the lungs as well. Central airways are patent. Hepatic steatosis is incidentally noted. Bro nchial wall thickening is likely related to pulmonary edema. IMPRESSION: 1. No pulmonary emboli identified although subsegmental pulmonary arteries within the lower lobes sub optimally opacified. 2. Mild cardiomegaly. Interlobular septal thickening consistent with interstitial pulmonary edema. Gr oundglass and nodular opacities within lungs favor alveolar pulmonary edema. Small bilateral pleural effusions. 3. Hepatic steatosis. 4. Mildly enlarged mediastinal and bilateral hilar lymph nodes, likely related to pulmonary edema. ACT 112: Negative or not required by law. Electronically signed by: Deep Almendarez M.D. 06/27/2023 5:00 PM
[2023-06-27] MEDS: FUROSEMIDE INJ 20 MG/2 ML VIAL IV ONE (17:35)
[2023-06-27] MEDS: AZITHROMYCIN 500 MG in DEXTROSE 5% 250 ML IV STA (17:35)
[2023-06-27] MEDS: METOPROLOL TARTRATE 25 MG TAB PO SCH (17:35)
[2023-06-27 18:23] LABS: Appearance Urine Clear (Clear); Bacteria Urine Automated None Seen (None Seen); Bilirubin Urine Negative (Negative); Blood Urine Negative (Negative); Cast Urine Automated 0-2 /lpf (0-2); Color Urine Yellow; Epithelial Cell Urine Auto 0-2 /hpf (0-2); Glucose Urine UA Negative (Negative); Ketones Urine Negative (Negative); Leukocyte Esterase Urine Negative (Negative); Nitrite Urine Negative (Negative); Protein Urine 1+ (Negative); RBC Urine Automated 0-2 /hpf (0-2); Specific Gravity Urine > 1.045 (1.000-1.030); Urobilinogen Urine Negative (Negative); WBC Urine Automated 0-5 /hpf (0-5)
[2023-06-27] MEDS ORDERED: Heparin IV Adult Wt-Based Standard *NO* INITIAL Bolus Protocol IV SCH (19:06)
[2023-06-27] MEDS: LORazepam 0.5 MG TAB PO STA (19:48)
[2023-06-27] MEDS: HEPARIN SODIUM/DEXTROSE 25,000 UNITS/500 ML BAG IV SCH (19:52)
--- OUTSIDE RECORDS SUMMARY | 2023-06-27 20:40 | External Medical Summary | Summary of Care ---
Author Name Unknown Organization [facility] Address [address] [place] [address] Phone [phone] Care Team Providers Care Car Ferry Captain Name Role Phone Nicholas Ferrara DO Primary Care Provider [phone] Reason for Visit * Auth/Cert Specialty Diagnoses / Procedures Referred By Rahat gan Referred To Contact Diagnoses Cervical radiculitis Cervical radiculitis [M54.12] Procedures INJECT DX/THER SUBSTANCE INTERLAMINAR CERVICAL/THORACIC W IMAGE GUIDE INJECTION SPINE LUMBAR CERVICAL OR THORACIC Harvey Vega DO [address] [place] [address] Or [facility] [address] [place] [address] Referral ID Status Reason Start Date Expiration Date Visits Re quested Visits Authorized [id number] Encounter Details Date Type Department Care Team (Latest Contact Info) Description 06/24/2023 1:04 PM EDT - 06/24/2023 2:49 PM EDT Hospital Encounter OR [facility], Operating Room [facility] [address] [place] [address] Harvey Vega DO [address] [place] [address] Discharge Disposition: Home - Self Care Allergies No known active allergiesdocumented as of this encounter (statuses as of 06/25/2023) Medications Medication Sig Dispensed Refills Start Date End Date Status amLODIPine Besylate 5 MG Oral Tablet (Norvasc) Take 1 Tablet by mouth in the morning. 0 07/20/2022 Active hydroCHLOROthiazide 25 MG Oral Tablet (Hydrodiuril) Take 1 Tablet by mouth in the morning. 0 08/05/2022 Active Sertraline HCl 100 MG Oral Tablet (Zoloft) Take 1 Tablet by mouth in the morning. 0 08/12/2022 Active Fexofenadine HCl 60 MG Oral Tablet Take 1 Tablet by mouth in the morning. 0 Active documented as of this encounter (statuses as of 06/25/2023) Active Problems No known active problems documented as of this encounter (statuses as of 06/25/2023) Social History Tobacco Use Types Packs/Day Years Used Date Smoking Tobacco: Never Assessed Sex and Gender Information Value Date Recorded Sex Assigned at Not on file Gender Identity Not on file Sexual Orientation Not on file Job Start Date Occupation Industry Not on file Not on file Not on file documented as of this encounter Last Filed Vital Signs Vital Sign Reading Time Taken Comments Blood Pressure 157/103 06/24/2023 2:47 PM EDT Pulse 91 06/24/2023 2:47 PM EDT Temperature 36.2 C (97.1 F) 06/24/2023 1:56 PM ED T Respiratory Rate 14 06/24/2023 2:47 PM EDT Oxygen Saturation 93% 06/24/2023 2:47 PM EDT Inhaled Oxygen Concentration - - Weight - - Height - - Body Mass Index - - documented in this encounter Discharge Instructions * Discharge Instr - AVS* Harvey Vega DO - 06/24/2023 2:39 PM EDT [facility] [address] [facility] [place] [address] Discharge Date: 06/24/2023 You may call [facility] at [phone] during business hours. For after-hours emergencies call 911. Your attending physician at the time of your discharge was: [facility] [address] The information below provides you with the instructions and the list of medications you need to betaking following discharge from the hospital. If you have any questions, please ask before leaving.Please carry this letter with you when you see your doctor in the clinic. Diet: Resume your normal diet If you are diabetic, follow your blood sugars closely for next 2-3 days as they are likely to be elevated. If you are having difficulty controlling your blood sugars call your family doctor or the physician that treats your diabetes. Activity: Do not engage in strenuous activity today Resume your normal activities tomorrow Do not soak in water for 24 hours. No swimming, hot tub or bath but showering is allowed. Do not use heat on the injection site for 24 hours. If uncomfortable ice may be helpful. Some injections may make your arms or legs weak for a few hours. Be extremely careful when walking or changing positions that you do not fall. Have someone assist you for the next 6 hours. If weakness or numbness becomes progressive CALL IMMEDIATELY or GO TO THE NEAREST EMERGENCY ROOM Do not restart physical therapy or chiropractic manipulation until 48 hours after your injection Call : If weakness or numbness suddenly becomes worse or become progressive If the injection site becomes red, swollen, warm to the touch, begins to bleed or drain fluid, or is excessively painful. If you have any questions Medications: Resume all the medications you were taking prior to your injection. Resume your anticoagulants tomorrow unless otherwise instructed by your family physician, abrading machine tender or the anticoagulation clinic. Additional Instructions: None Driving: You may resume driving in 12-24 hours if no weakness is noted . Date you may return to work or school: N/A Follow Up: Please make a follow-up telephone appointment with our nursing staff in 4-6 weeks. documented in this encounter Progress Notes * Harvey Vega DO - 06/24/2023 2:39 PM EDT [facility] [address] [place] [address] OUTPATIENT SURGERY DISCHARGE SUMMARY NOTE Name: Brayan Baez Location: OR [facility] [address]/OR Date: 06/24/2023 Time: 2:39 PM Surgery Date: 06/24/2023 Procedure: INJECTION SPINE LUMBAR CERVICAL OR THORACIC No laterality found for procedure #1 Surgeon: Harvey Vega DO Discharge Diagnosis: cervical radicular pain After examination of this patient, I have determined he is ready for discharge to home when the patient meets criteria. Discharge instructions were given to the patient. Harvey Vega DO OR [facility], Operating Room [facility] [address] [facility] [place] [address] documented in this encounter H&P Notes * Harvey Vega DO - 06/24/2023 2:18 PM EDT Interventional Pain H&P Subjective: History of Present Illness: Brayan Baez is a 33 year old year-old male with a past medical history significant for cervical radicular pain who is presenting for right C7/T1 MARTIN to improve his pain and function. his pain is essentially unchanged since our last office visit with him . ASA 3 AW nml Review of Systems: A focused 12-pt ROS were of reviewed with the patient including difficulty with sleep, snoring, aspiration history, dysphagia, stomach pain, nausea and vomiting, severe headaches, confusion, open skin lesions or wounds, chest pain, shortness of breath, excessive thirst, somnolence, dysuria, incomplete bladder emptying, easy bruising, recent clotting problems or bleeding, depression or rushed thoughts unless noted previously. Review of patient's allergies indicates: No Known Allergies Medications, Past Medical History, Past Surgical History reviewed and documented in Epic. See detailed report if needed. Pertinent Labs/Test Results: No results found for: "INR" No results found for: "CREATININE" No results found for: "HGBA1C", "[id number]" No results found for: "AMPHETAMINE", "BARBITURATES", "BENZODIAZEPINES", "BUPRENORPHINE", "METHADONE", "OPIATES", "OXYCODONE", "PHENCYCLIDINE", "CANNABINOIDS", "TOX SCREEN", "URINE", "TOX SCREEN-SERUM", "TOX SCREEN, URINE" Imaging: I personally reviewed the imaging and my findings were . FLUORO INTERVENTIONAL PAIN PROCEDURE NONBILLABLE This procedure will not be read by a Radiologist. Please see operative note. Objective Physical Exam: Vital Signs: BP 145/105 | Pulse 99 | Temp 36.2 C (97.1 F) (Tympanic) | Resp 15 | SpO2 95% Thereis no height or weight on file to calculate BMI. General: No apparent distress. Eyes: pupils equal and round, sclera white, pupils midsize. ENT: mucous membranes moist Resp: Non-labored breathing CV: Extremities warm and well-perfused. Psych: Oriented; affect warm, insight good. Skin: No rashes or lesions appreciated on exposed skin Neuromuscular Exam: TTP over cervical spine Assessment: Brayan is a 33 year old year-old male with: Cervical radicular pain Plan: The patient is undergoing C7/T1 MARTIN today to alleviate his pain and improve his function. The risks, benefits and alternatives to the procedure were reviewed at length and the patient was provided the opportunity to ask questions which were answered to their voiced understanding. Following this comprehensive discussion, the patient opted to proceed. The patient was consented to the procedure following this comprehensive conversation. Harvey Vega DO OR [facility], Operating Room [address] [address] documented in this encounter Nursing Notes * Samaria Fuller RN - 06/24/2023 2:47 PM EDT Visited by Dr Vega. Verbalized understanding of discharge directions. Ready for discharge to home. * Rupal Lao RN - 06/24/2023 2:38 PM EDT Band aid applied to area. Patient transferred to PACU 11 via wheelchair * Rupal Lao RN - 06/24/2023 2:32 PM EDT Patient tolerating pain management injection well. documented in this encounter OR Notes * OR Surgeon - Harvey Vega DO - 06/24/2023 2:38 PM EDT Cervical Interlaminar Epidural Steroid Injection DATE: 06/24/2023 PHYSICIAN: Harvey Vega DO PREOPERATIVE DIAGNOSIS: Cervical spondylosis with cervical radiculopathy. POSTOPERATIVE DIAGNOSIS: Cervical spondylosis with cervical radiculopathy. PROCEDURE PERFORMED: C7-T1 interlaminar epidural steroid injection on the right side. Fluoroscopy for precise needle localization. ANESTHESIA: Local infiltration with lidocaine. MONITORING: Automatic blood pressure cuff, pulse oximetry readily available There was no executive sales assistant, EBL or drains placed during this procedure. INDICATIONS: We had the pleasure of seeing Brayan Baez ([id number]) in the pain management clinic at the [facility] today. Brayan is a 33 year old year-old male with cervical radiculopathy. The patient is here today for an interlaminar cervical epidural steroid injection. MEDICATIONS: No current facility-administered medications for this encounter. ALLERGIES: Review of patient's allergies indicates: No Known Allergies REVIEW OF SYSTEMS: Negative for fever, chills, chest pain, SOB, bleeding abnormalities, nausea, vomiting, diarrhea, worsening edema, or new rashes. FOCUSED PHYSICAL EXAMINATION: The patient is awake, alert and oriented, and is in no acute distress. Vital signs are stable. The patient is afebrile. The rest of the PE is essentially unchanged from the patient's recent visit to our office. I explained the procedure to the patient including the risks, benefits and alternatives to the procedure. The risks discussed with the patient included but were not limited to: bleeding, infection, and damage to surrounding nerves, tissues, and organs, paralysis, increased pain, allergic reaction, blood pressure instability, seizures, heart block, headaches, increase in blood sugar, worsening of glaucoma, blindness, manic episodes, mood instability, pneumothorax, . The patient verbalized understanding and was willing to proceed. Alternatives to the procedure were also explained and include: do nothing, surgery, medications, and physical therapy PROCEDURE IN DETAIL: An informed consent was obtained. The patient was taken to the procedure room and was positively identified by the staff and the physician. The patient was positioned prone on the procedure bed. Vital signs were monitored as above and remained stable throughout the procedure. The skin was prepped and draped in the standard sterile fashion with ChloraPrep and surgical drape. Asurgical pause (time-out) was performed and was agreed upon by the members of the team. A fluoroscopic view of the cervical spine was obtained, and the area of interest was identified. The skin and subcutaneous tissues were anesthetized using 1% lidocaine and 25-gauge 1-1/2-inch needle. Under fluoroscopic guidance, a 20-gauge 3.5-inch epidural needle was advanced toward the C7-T1 interlaminar window in the right paramedian position. AP and contralateral oblique views were used to guide accurate needle placement. Loss of resistance to air was utilized in order to identify the epidural space and was obtained at 7 cm from the skin. The needle's position was additionally verified byinjecting iodinated radio-opaque dye, iohexol 240 mg/ml which showed excellent spread of the dye inthe epidural space. After negative aspiration for the CSF or blood, 80 mg of triamcinolone and 0.5 mL of preservative-free normal saline was slowly injected into the epidural space. All needles were removed. The patient tolerated the procedure well. COMPLICATIONS: None. DISPOSITION: 1. Return to clinic in 1-2 months for follow-up evaluation, sooner as needed. 2. Resume activity as tolerated. 3. Patient can drive after 12-24 hours if no weakness noted. Harvey Vega DO OR [facility], Operating Room [facility] [address] [place] [address] documented in this encounter Plan of Treatment Upcoming Encounters Date Type Department Care Team (Late st Contact Info) Description 07/22/2023 2:00 PM EDT Scheduled Telephone [facility] [address] [place] [address] Nurse Conor Phone Call Interventional Pain Doc [address] [place] [address] Health Maintenance Due Date Last Done Comments Depression Screening 2001 HIV Screening 2004 Hepatitis C Screening 05/14/2007 Hepatitis B (2 of 3 - Hep B Twinrix 3-dose series) 11/17/2020 10/20/2020 COVID-19 Vaccine (2 - 2022- season) 2022 05/04/2020 Influenza Vaccine (FLU shot) (Season Ended) 2023 11/17/2015 DTaP,Tdap,and Td Vaccines (6 - Td or Tdap) 03/24/2030 03/24/2020, 01/16/1991, 01/04/1990, Additional history exists GARDASIL-HPV IMMUNIZATION SERIES Aged Out No longer eligible based on patient's age to complete this topic MENINGOCOCCAL (MENACTRA/MENVEO) Aged Out No longer eligible based on patient's age to complete this topic Pneumococcal Vaccine: Pediatrics (0 to 5 Years) and At-Risk Patients (6 to 64 Years) Aged Out No longer eligible based on patient's age to complete this topic documented as of this encounter Medical Devices Not on filedocumented as of this encounter Procedures Procedure Name Priority Date/Time Associated Diagnosis Comments FLUORO INTERVENTIONAL PAIN PROCEDURE NONBILLABLE Routine 06/24/2023 2:44 PM EDT documented in this encounter Results * FLUORO INTERVENTIONAL PAIN PROCEDURE NONBILLABLE (06/24/2023 2:44 PM EDT) Narrative Scheduling, Silent - 06/24/2023 2:45 PM EDT This procedure will not be read by a Radiologist. Please see operative note. Harvey [facility] FLUOROSCOPY documented in this encounter Administered Medications Inactive Administered Medications - up to 3 most recent administrations Medication Order MAR Action Action Date Dose Rate Site Iohexol (Omnipaque 240) inj 0.25 mL 0.25 mL, Epidural, ONCE, On Tue06/24/23 at 1430, For 1 dose, For cervical epidural Given 06/24/2023 2:35 PM EDT 2 mL lidocaine 1 % inj 15 mg 15 mg (1.5 mL), Subcutaneous, ONCE, On Tue06/24/23 at 1430, For 1 dose Given 06/24/2023 2:32 PM EDT 5 mL Other-Specify Triamcinolone Acetonide (Kenalog) 40 MG/ML inj 40 mg 40 mg, Injection, ONCE, On Tue06/24/23 at 1430, For 1 dose Given 06/24/2023 2:36 PM EDT 80 mg documented in this encounter Active and Recently Administered Medications Times are shown in EDT. Scheduled Medication Order 06/22/2023 06/23/2023 06/24/2023 Iohexol (Omnipaque 240) inj 0.25 mL (COMPLETED) 0.25 mL, Epidural, ONCE, On Tue06/24/23 at 1430, For 1 dose, For cervical epidural 1435 (Given - Provid er: Rupal Lao RN) lidocaine 1 % inj 15 mg (COMPLETED) 15 mg (1.5 mL), Subcutaneous, ONCE, On Tue06/24/23 at 1430, For 1 dose 1432 (Given - Provid er: Rupal Lao RN) Triamcinolone Acetonide (Kenalog) 40 MG/ML inj 40 mg (COMPLETED) 40 mg, Injection, ONCE, On Tue06/24/23 at 1430, For 1 dose 1436 (Given - Provid er: Rupal Lao RN) documented in this encounter Care Teams Car Ferry Captain Relationship Specialty Start Date End Date Nicholas Ferrara DO [address] [place] [address] PCP - General Family Medicine 09/27/22 documented as of this encounter
--- OUTSIDE RECORDS SUMMARY | 2023-06-27 20:40 | External Medical Summary | Summary of Care ---
Author Name Unknown Organization [facility] Address [address] [place] [address] Phone [phone] Care Team Providers Care Fertilizer Applicator Name Role Phone Joypriyanka Nicholas Kennedy DO Primary Care Provider [phone] Reason for Visit * Reason Comments Follow Up BIMAL Encounter Details Date Type Department Care Team (Late st Contact Info) Description 03/28/2023 1:30 PM [facility] Telemedicine Interventional Pain Center, [facility] [address] [place] [address] Maryam Burton PA-C [address] [facility] [place] [address] Cervical radicular pain* Allergies No known active allergiesdocumented as of this encounter (statuses as of 03/28/2023) Medications Medication Sig Dispensed Refills Start Date End Date Status amLODIPine Besylate 5 MG Oral Tablet (Norvasc) Take 1 Tablet by mouth in the morning. 0 07/20/2022 Active hydroCHLOROthiazi de 25 MG Oral Tablet (Hydrodiuril) Take 1 Tablet by mouth in the morning. 0 08/05/2022 Active Sertraline HCl 100 MG Oral Tablet (Zoloft) Take 1 Tablet by mouth in the morning. 0 08/12/2022 Active Fexofenadine HCl 60 MG Oral Tablet Take 1 Tablet by mouth in the morning. 0 Active Gabapentin 300 MG Oral Capsule (Neurontin) TAKE 2 CAPSULES BY ORAL ROUTE EVERY DAY AT BEDTIME 0 09/01/2022 03/28/2023 Discontinued( Medication List Clean Up) Cyclobenzaprine HCl 10 MG Oral Tablet (Flexeril) TAKE 1 TABLET BY ORAL ROUTE 1 HOUR PRIOR TO BEDTIME 0 08/30/2022 03/28/2023 Discontinued( Medication List Clean Up) documented as of this encounter (statuses as of 03/28/2023) Active Problems No known active problems documented as of this encounter (statuses as of 03/28/2023) Social History Tobacco Use Types Packs/Day Years Used Date Smoking Tobacco: Never Assessed Sex and Gender Information Value Date Recorded Sex Assigned at Not on file Gender Identity Not on file Sexual Orientation Not on file Job Start Date Occupation Industry Not on file Not on file Not on file documented as of this encounter Progress Notes * Maryam Burton PA-C - 03/28/2023 1:27 PM EST Name: Brayan Baez Date: 03/28/2023 After connecting to the patient via telephone, the patient was identified by name and date of . Patient was then informed that this was a telephone call only visit. The patient agreed to participate. Visit Disposition: Routine follow-up Total call duration 6 minutes. HPI: Brayan Baez is a 32 year old male known to the Pain Management clinic presents for follow up after right interlaminar MARTIN C7/T1 on 02/11/23. Admits 60- 75% pain reduction. Locates refractory pain R neck and R UE. Denies progressive UE weakness or paresthesia. Denies bowel/bladder dysfunction.Using ibuprofen for pain relief. No longer using gabapentin or flexeril. History of injections: MARTIN C7/T1: 09/27/22 History: No past medical history on file. Past Surgical History: Procedure Laterality Date INJECT DX/THER SUBSTANCE INTERLAMINAR CERVICAL/THORACIC W IMAGE GUIDE 09/27/2022 INJECTION SPINE LUMBAR CERVICAL OR THORACIC performed by Harvey Vega DO at OR [facility] INJECT DX/THER SUBSTANCE INTERLAMINAR CERVICAL/THORACIC W IMAGE GUIDE 02/11/2023 INJECTION SPINE LUMBAR CERVICAL OR THORACIC performed by Harvey Vega DO at OR [facility] SPINE SURGERY PROCEDURE NEC 02/2014 lumbar fusion- SPINE SURGERY PROCEDURE NEC 04/2007 laminectomy-Danna Current Outpatient Medications Medication Sig Dispense Refill Gabapentin 300 MG Oral Capsule (Neurontin) TAKE 2 CAPSULES BY ORAL ROUTE EVERY DAY AT BEDTIME (Patient not taking: Reported on 11/16/2022) Cyclobenzaprine HCl 10 MG Oral Tablet (Flexeril) TAKE 1 TABLET BY ORAL ROUTE 1 HOUR PRIOR TO BEDTIME (Patient not taking: Reported on 11/16/2022) amLODIPine Besylate 5 MG Oral Tablet (Norvasc) Take 1 Tablet by mouth in the morning. hydroCHLOROthiazide 25 MG Oral Tablet (Hydrodiuril) Take 1 Tablet by mouth in the morning. Sertraline HCl 100 MG Oral Tablet (Zoloft) Take 1 Tablet by mouth in the morning. Fexofenadine HCl 60 MG Oral Tablet Take 1 Tablet by mouth in the morning. No current facility-administered medications for this visit. Review of patient's allergies indicates: No Known Allergies ASSESSMENT: Cervical radicular pain RECOMMENDATION: Admits significant relief of neck and R UE pain that is prolonged with injection therapy. Can complete daily activities with mild to moderate neck discomfort. Encouraged to continue conservative careincluding home exercise/stretching program and medication management. Advised to call if pain worsens. Requesting to tentatively schedule repeat injection - recommend waiting at least three months. Reiterated importance of spacing procedures. Will need to stop ibuprofen three days prior to procedure. Total call duration six minutes. Maryam Burton PA-C 03/28/2023 documented in this encounter Plan of Treatment Scheduled Orders Name Type Priority Associated Diagnoses Orde r Schedule INJECT DX/THER SUBSTANCE INTERLAMINAR CERVICAL/THORACIC W IMAGE GUIDE Procedures Routine Cervical radicular pain Expected: 06/26/2023, Expires: 04/25/2024 Health Maintenance Due Date Last Done Comments Depression Screening 2001 HIV Screening 2004 Hepatitis C Screening 05/14/2007 Hepatitis B (2 of 3 - Hep B Twinrix 3-dose series) 11/17/2020 10/20/2020 COVID-19 Vaccine (2 - 2022- season) 2022 05/04/2020 Influenza Vaccine (FLU shot) (#1) 2022 11/17/2015 DTaP,Tdap,and Td Vaccines (6 - Td [...] Not on filedocumented as of this encounter Visit Diagnoses Diagnosis Cervical radicular pain- Primary Brachial neuritis or radiculitis nos documented in this encounter Care Teams Fertilizer Applicator Relationship Specialty Start Date End Date Nicholas Ferrara DO [address] [place] [address] PCP - General Family Medicine 09/27/22 documented as of this encounter
[2023-06-28 02:25] LABS: Basophils # (auto) 0.04 K/uL (0.00-0.20); Basophils % (auto) 0.2 %; Eosinophils # (auto) 0.09 K/uL (0.00-0.50); Eosinophils % (auto) 0.5 %; Hematocrit (blood only) 45.9 % (42.0-52.0); Hemoglobin 16.1 g/dl (14.0-18.0); Immature Granulocytes # (auto) 0.06 K/uL (0.01-0.20); Immature Granulocytes % (auto) 0.4 %; Lymphocytes # (auto) 2.57 K/uL (1.20-3.40); Lymphocytes % (auto) 15.1 %; Mean Corpuscular Hemoglobin 30.7 pg (25.0-34.0); Mean Corpuscular Hgb Conc 35.1 g/dL (32.0-36.0); Mean Corpuscular Volume 87.6 fL (80.0-100.0); Mean Platelet Volume 9.6 fL (9.4-12.4); Monocytes % (auto) 7.6 %; Neutrophils # (auto) 12.94 K/uL (1.40-6.50); Neutrophils % (auto) 76.2 %; Platelet Count 299 K/uL (130-400); RDW Standard Deviation 41.3 fL (36.4-46.3); Red Blood Count 5.24 M/uL (4.70-6.10)
[2023-06-28 02:32] LABS: Albumin Globulin Ratio 1.3 (0.9-2); Albumin Level 4.1 gm/dl (3.4-5.0); BUN Creatinine Ratio 13.5 (10-20); Bilirubin,Total 0.9 mg/dl (0.2-1.0); C Reactive Protein 5.65 mg/dl (0-0.5); Calcium 8.9 mg/dl (8.6-10.3); Creatinine Clr Calc Pharmacy 125.1 ml/min; Est GFR (African American) 108.1 ml/min; Est GFR (Non-African American) 93.2 ml/min; Globulin 3.1 gm/dl (2.5-4.0); Potassium 3.5 mmol/L (3.5-5.1); Total Protein 7.2 gm/dl (6.0-8.3)
[2023-06-28 02:37] LABS: ANTI-Xa, UFH(UnfractionatedHep 0.22 IU/ml (0.3-0.7)
[2023-06-28] MEDS: LORazepam 0.5 MG TAB PO PRN (03:01)
[2023-06-28] MEDS ORDERED: AZITHROMYCIN 250 MG TAB PO SCH (09:00)
[2023-06-28 09:31] LABS: ANTI-Xa, UFH(UnfractionatedHep 0.24 IU/ml (0.3-0.7)
[2023-06-28 09:37] LABS: Estimated Average Glucose 105 mg/dl; Hemoglobin A1C 5.3 % (4.5-5.6)
[2023-06-28] MEDS: METOPROLOL TARTRATE 50 MG TAB PO SCH (09:39)
--- NOTE | 2023-06-28 10:31 | Cardiology Consultation ---
Date of Consultation June 28, 2023 Assessment & Plan (1) Atrial fibrillation with rapid ventricular response: (2) Acute systolic CHF (congestive heart failure): (3) Hypertension: Plan Mr. Baez is a 33-year-old male with a history of Hypertension, Anxiety, Asthma, DUDLEY, Depression, and Snoring with Daytime Somnolence (possible Sleep Apnea) who presented acutely to [facility] on 06/27/23 complaining of SOB, SANTIAGO, Fatigue, Cough, and Chest Pressure. On admission he claimed that it felt like an "elephant is sitting on my chest". Patient's symptoms started on morning 06/23/23 when he developed a low- grade fever at 99.5 F at home. He also developed a productive cough (yellow sputum production). Patient then received a steroid injection in his right shoulder on Tuesday. He felt that the fever was going away, but then developed difficulty breathing Tuesday night and by Tuesday it felt like a "elephant was sitting on my chest". Patient also admitted to multiple episodes of hemoptysis over the weekend -- he described bright red blood in his sputum. He had been taking DayQuil and NyQuil for his symptoms. Patient states that it feels like he is "running a marathon" whenever he does simple things such as walking. He denies any personal history of atrial fibrillation, PA, DVT/PE, diabetes, stroke, CHF, hyperlipidemia, or vascular disease to his knowledge. Patient only takes valsartan on a regular basis. He did not take any Tylenol for his fever. He does occasionally take Benadryl for his allergies and ibuprofen as needed for aches and pains (pain management for his herniated disc). He denies ibuprofen use in the past week. Patient does have a history of asthma as a child, but has not needed his albuterol inhaler in around 20 years. He reports that coughing hurts his lower rib cages bilaterally. 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 Patient also has 2 children at home (ages 10 and 13 years old). No CPAP at night, but the patient does have a sleep study upcoming. On admission, the patient is noted to be hypokalemic, that has been corrected. He remains in atrial fibrillation with RVR, although his ventricular response rates are currently in the 110's and 120's. His high sensitivity troponin I is unremarkable at 18.3 pg/mL. He appears to be volume overloaded, BNP is pending. Patient has not noted any palpitations or sensation that his heart is racing at any time, therefore we do not know when the onset of his atrial fibrillation was. His Echocardiogram shows mildly reduced LV systolic function with an LVEF of 40% to 45%, this is likely the result of his rapid atrial fibrillation. Patient is currently on a Diltiazem drip, oral Lopressor, and a Heparin drip. His blood pressure is not controlled. His [id number] is 2 based on hypertension and CHF/reduced LV systolic function. Anticoagulation is indicated. As we do not know when his onset of AFib was, there is the possibility of a left atrial appendage clot (although this was not seen on transthoracic echo). We recommend a rate control and anticoagulation strategy over next 3.5 to 4 weeks, followed by an elective electrical cardioversion if he remains in atrial fibrillation. Recommend the followin. Increase Lopressor to 50 mg every 6 hours in an effort to get better rate control 2. Continue Cardizem Drip for the time being. 3. Convert to Eliquis 5 mg b.i.d. at the time of discharge. 4. Check BNP, he appears to need more Lasix. 5. Continue Valsartan 160 mg daily. 6. We will plan on having him follow-up with electrophysiology 3.5 to 4 weeks following discharge so arrangements can be made for cardioversion. Another option, if we do not get his heart rate controlled, would be a transesophageal echocardiogram followed by cardioversion. We will continue to follow along while hospitalized. History of Present Illness Reason for Consultation: -- Newly Diagnosed Atrial Fibrillation with RVR. Requesting Physician: Kiran Morris MD Attending Physician: Darin Bassett MD History of Present Illness Mr. Baez is a 33-year-old male with a history of Hypertension, Anxiety, Asthma, DUDLEY, Depression, and Snoring with Daytime Somnolence (possible Sleep Apnea) who presented acutely to [facility] on 06/27/23 complaining of SOB, SANTIAGO, Fatigue, Cough, and Chest Pressure. On admission he claimed that it felt like an "elephant is sitting on my chest". Patient's symptoms started on morning 06/23/23 when he developed a low- grade fever at 99.5 F at home. He also developed a productive cough (yellow sputum production). Patient then received a steroid injection in his right shoulder on Tuesday. He felt that the fever was going away, but then developed difficulty breathing Tuesday night and by Tuesday morning it felt like a "elephant was sitting on my chest". Patient also admitted to multiple episodes of hemoptysis over the weekend -- he described bright red blood in his sputum. He had been taking DayQuil and NyQuil for his symptoms. Patient states that it feels like he is "running a marathon" whenever he does simple things such as walking. He denies any personal history of atrial fibrillation, PA, DVT/PE, diabetes, stroke, CHF, hyperlipidemia, or vascular disease to his knowledge. Patient only takes valsartan on a regular basis. He did not take any Tylenol for his fever. He does occasionally take Benadryl for his allergies and ibuprofen as needed for aches and pains (pain management for his herniated disc). He denies ibuprofen use in the past week. Patient does have a history of asthma as a child, but has not needed his albuterol inhaler in around 20 years. He reports that coughing hurts his lower rib cages bilaterally. 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 Patient also has 2 children at home (ages 10 and 13 years old). No CPAP at night, but the patient does have a sleep study upcoming. Patient is a former cigarette smoker, but quit 14 years ago; he also used to chew snuff. Patient does drink alcohol, with his last drink being on Friday 06/23 -- he drank 2 shots of whiskey and some beers; sometimes drinks multiple days per week. On admission, the patient is noted to be hypokalemic, that has been corrected. He remains in atrial fibrillation with RVR, although his ventricular response rates are currently in the 110's and 120's. His high sensitivity troponin I is unremarkable at 18.3 pg/mL. BNP is pending. Patient has not noted any palpitations or sensation that his heart is racing at any time, therefore we do not know when the onset of his atrial fibrillation was. Allergies Allergy/AdvReac Type Severity Reaction Status Date / Time No Known Allergies Allergy Mild Verified 06/27/23 13:52 Home Medications Medication Instructions Recorded Confirmed Type triamcinolone acetonide 0.5 % 1 applic topical BID PRN Skin 03/08/23 06/27/23 Rx topical ointment Irritation #15 grams valsartan 160 mg tablet 160 mg PO DAILY #30 tabs 03/31/23 06/27/23 Rx Patient History Medical History Strabismus Abdominal pain Surgical History H/O sinus surgery H/O laminectomy History of back surgery Family History Grandfather (Maternal) Pancreatic cancer Uncle Myocardial infarction Grandfather (Paternal) Stroke Hypertension Father Hypertension Mother Atrial fibrillation Denies family history of Ovarian cancer Prostate cancer Breast cancer Colorectal cancer Social History Smoking Status: Former smoker Second Hand Exposure: No; Do You Dip or Chew Tobacco: No; Hx Alcohol Use: Yes Alcohol type: hard liquor Alcohol Intake Frequency: 4 or More x per/Week Hx Substance Use: No Preferred Language: Yoruba Communication Ability: Effective Visual Impairment: Limited Hearing Ability: Normal Pot Sander Required: No Beliefs That Will Affect Care: None marital status: Current Living Situation: Spouse current occupational status: employed Other Information That Helps Us Care for You: No Feels Safe at Home: Yes Childhood Exposure to Second-Hand Smoke: Yes caffeine: Yes Dental Care, Regularly: Yes Physical Activity Frequency: Does not Exercise Seatbelt Use: always Sunscreen Use: Yes Assistive Devices: Glasses Review of Systems Review of Systems: -- As per HPI. Physical Exam Physical Exam: Blood pressure is 153/93. Pulse 110-120 and irregularly irregular. GENERAL: Patient in no acute distress. HEENT: Head is atraumatic, normocephalic. Strabismus noted, EOM's intact. Facies symmetric. No perioral cyanosis. NECK: No JVD. JVP is elevated. Carotid upstrokes are + 2 bilaterally without bruits. CHEST/LUNGS: Diffuse crackles in bilateral lower lung [place]. CVS: S1 and S2 are irregularly irregular and tachycardic. No murmurs, gallops, or rubs. PMI is nonpalpable. No lifts, heaves, or thrills. No abdominal aortic or renal bruits. ABDOMINAL EXAM: Bowel sounds are present. No masses, organomegaly, or tenderness. EXTREMITIES: No clubbing or cyanosis. No edema. Intact radial pulses bilaterally. NEUROLOGIC EXAM: Patient is awake, alert, and oriented. Pleasant and coopera tive. Answers questions appropriately. Speech is clear. 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 Results & Data Vital Signs (Past 12 Hours) Vital Signs Temp Pulse Pulse Resp BP BP Pulse Ox 06/28/23 08:02 36.3 C L 117 H 18 153/93 H 91 06/28/23 06:00 80 06/28/23 05:46 111 H 06/28/23 04:52 136 H 139/88 06/28/23 04:11 113 H 06/28/23 03:07 36.8 C 102 H 22 144/99 H 91 06/28/23 02:10 99 H 06/28/23 00:59 118 H 142/90 H 06/28/23 00:02 144 H 06/27/23 23:07 36.4 C L 144 H 20 134/99 92 06/27/23 23:00 107 H O2 Del Method 06/28/23 08:02 Room Air 06/28/23 06:00 06/28/23 05:46 06/28/23 04:52 06/28/23 04:11 06/28/23 03:07 Room Air 06/28/23 02:10 06/28/23 00:59 06/28/23 00:02 06/27/23 23:07 Room Air 06/27/23 23:00 Laboratory Results Laboratory Results - last 24 hr 06/27/23 06/27/23 06/27/23 11:27 14:16 17:50 WBC RBC Hgb Hct MCV MCH MCHC RDW Std Deviation RDW Coeff of Chanel Plt Count MPV Immature Gran % (Auto) Neut % (Auto) Lymph % (Auto) Colbert % (Auto) Eos % (Auto) Baso % (Auto) Neut # (Auto) Lymph # (Auto) Colbert # (Auto) Eos # (Auto) Baso # (Auto) Immature Gran # (Auto) PT 10.8 INR 1.0 APTT 28 PTT Ratio 1.0 D-Dimer 560 H* Heparin Anti-Xa, Unfract Sodium Potassium Chloride Carbon Dioxide Anion Gap BUN Creatinine Est Cr Clr Drug Dosing Est GFR ( Amer) Est GFR (Non-Af Amer) BUN/Creatinine Ratio Glucose Estimat Average Glucose Hemoglobin A1c Calcium Magnesium 2.0 Total Bilirubin AST ALT Alkaline Phosphatase C-Reactive Protein 2.32 H B-Natriuretic Peptide Total Protein Albumin Globulin Albumin/Globulin Ratio TSH 4.095 Urine Color Yellow Urine Appearance Clear Urine pH 8.0 H Ur Specific [place] > 1.045 H Urine Protein 1+ H Urine Glucose (UA) Negative Urine Ketones Negative Urine Blood Negative Urine Nitrite Negative Urine Bilirubin Negative Urine Urobilinogen Negative Ur Leukocyte Esterase Negative Urine WBC (Auto) 0-5 Urine RBC (Auto) 0-2 U Hyaline Cast (Auto) 0-2 U Epithel Cells (Auto) 0-2 Urine Bacteria (Auto) None Seen Ethyl Alcohol mg/dL < 10.0 Adenovirus (PCR) Not Detected B. pertussis DNA (PCR) Not Detected B.parapertussis DNA PCR Not Detected C. pneumoniae DNA (PCR) Not Detected Coronavirus OC43 (PCR) Not Detected Coronavirus HKU1 (PCR) Not Detected Coronavirus 229E (PCR) Not Detected SARS-CoV-2 (PCR) Not Detected Coronavirus NL63 (PCR) Not Detected Human Metapneumovir PCR Not Detected Influenza Type A (PCR) Not Detected Influenza Type B (PCR) Not Detected M. pneumoniae (PCR) Not Detected Parainfluenza 1 (PCR) Not Detected Parainfluenza 2 (PCR) Not Detected Parainfluenza 3 (PCR) Not Detected Parainfluenza 4 (PCR) Not Detected RSV (PCR) Not Detected Entero/Rhino (PCR) Not Detected 06/28/23 06/28/23 06/28/23 01:57 08:48 09:51 WBC 17.00 H RBC 5.24 Hgb 16.1 Hct 45.9 MCV 87.6 MCH 30.7 MCHC 35.1 RDW Std Deviation 41.3 RDW Coeff of Chanel 13.0 Plt Count 299 MPV 9.6 Immature Gran % (Auto) 0.4 Neut % (Auto) 76.2 Lymph % (Auto) 15.1 Colbert % (Auto) 7.6 Eos % (Auto) 0.5 Baso % (Auto) 0.2 Neut # (Auto) 12.94 H Lymph # (Auto) 2.57 Colbert # (Auto) 1.30 H Eos # (Auto) 0.09 Baso # (Auto) 0.04 Immature Gran # (Auto) 0.06 PT INR APTT PTT Ratio D-Dimer Heparin Anti-Xa, Unfract 0.22 L 0.24 L Sodium 137 Potassium 3.5 Chloride 103 Carbon Dioxide 25 Anion Gap 9 BUN 14 Creatinine 1.04 Est Cr Clr Drug Dosing 125.1 Est GFR ( Amer) 108.1 Est GFR (Non-Af Amer) 93.2 BUN/Creatinine Ratio 13.5 Glucose 197 H Estimat Average Glucose 105 Hemoglobin A1c 5.3 Calcium 8.9 Magnesium 2.0 Total Bilirubin 0.9 AST 47 H ALT 80 H Alkaline Phosphatase 61 C-Reactive Protein 5.65 H B-Natriuretic Peptide 300 H Total Protein 7.2 Albumin 4.1 Globulin 3.1 Albumin/Globulin Ratio 1.3 TSH Urine Color Urine Appearance Urine pH Ur Specific [place] Urine Protein Urine Glucose (UA) Urine Ketones Urine Blood Urine Nitrite Urine Bilirubin Urine Urobilinogen Ur Leukocyte Esterase Urine WBC (Auto) Urine RBC (Auto) U Hyaline Cast (Auto) U Epithel Cells (Auto) Urine Bacteria (Auto) Ethyl Alcohol mg/dL Adenovirus (PCR) B. pertussis DNA (PCR) B.parapertussis DNA PCR C. pneumoniae DNA (PCR) Coronavirus OC43 (PCR) Coronavirus HKU1 (PCR) Coronavirus 229E (PCR) SARS-CoV-2 (PCR) Coronavirus NL63 (PCR) Human Metapneumovir PCR Influenza Type A (PCR) Influenza Type B (PCR) M. pneumoniae (PCR) Parainfluenza 1 (PCR) Parainfluenza 2 (PCR) Parainfluenza 3 (PCR) Parainfluenza 4 (PCR) RSV (PCR) Entero/Rhino (PCR) Diagnostic Findings CXR 06/27/23: FINDINGS: No pneumothorax. No pleural effusions. The cardiac silhouette is borderline enlarged. This may be accentuated by the AP portable technique. The left lung is clear. No evidence for pulmonary edema. No acute fractures. Mild interstitial thickening at the right lung base. IMPRESSION: Mild interstitial thickening at the right lung base. This could be due to the low lung volumes or a mild interstitial pneumonitis. CTA CHEST 06/27/23: FINDINGS: No pulmonary emboli are identified although the subsegmental pulmonary arteries within the lower lobes are suboptimally opacified. The heart is mildly enlarged. There is no pericardial effusion. Mildly enlarged mediastinal and bilateral hilar lymph nodes are present. Index subcarinal lymph node on image 109 of 270 measures 1.9 x 1.2 cm. There is no pneumothorax. Small bilateral pleural effusions are present. Interlobular septal thickening is noted. There are groundglass and nodular opacities within the lungs as well. Central airways are patent. Hepatic steatosis is incidentally noted. Bronchial wall thickening is likely related to pulmonary edema. IMPRESSION: 1. No pulmonary emboli identified although subsegmental pulmonary arteries within the lower lobes suboptimally opacified. 2. Mild cardiomegaly. Interlobular septal thickening consistent with interstitial pulmonary edema. Ground-glass and nodular opacities within lungs favor alveolar pulmonary edema. Small bilateral pleural effusions. 3. Hepatic steatosis. 4. Mildly enlarged mediastinal and bilateral hilar lymph nodes, likely related to pulmonary edema. Medications Administered Medication List Diltiazem HCl 125 mg/ Dextrose 125 mls @ 15 mls/hr IV .Q8H20M [facility]; Protocol Stop: 07/27/23 11:29 Last Admin: 06/28/23 09:08 Dose: 15 mg/hr, 15 mls/hr Documented By: MYRIAM Co-signed By: KIRIT Titration: 06/28/23 08:19 Dose: Infused Documented By: MYRIAM Co-signed By: KIRIT Titration: 06/28/23 07:05 Dose: 15 mg/hr, 15 mls/hr Documented By: ANDRAE Co-signed By: MYRIAM Admin: 06/27/23 23:58 Dose: 15 mg/hr, 15 mls/hr Documented By: ANDRAE Co-signed By: AUNG Titration: 06/27/23 23:58 Dose: Infused Documented By: ANDRAE Co-signed By: AUNG Titration: 06/27/23 19:38 Dose: 15 mg/hr, 15 mls/hr Documented By: ANDRAE Co-signed By: CR Titration: 06/27/23 17:47 Dose: 10 mg/hr, 10 mls/hr Documented By: FARHEEN Co-signed By: NIRALI Admin: 06/27/23 11:47 Dose: 5 mg/hr, 5 mls/hr Documented By: ERICKA Co-signed By: VANGIE Heparin Sodium/Dextrose (Heparin Sodium/Dextrose) 25,000 units in 500 mls @ 36 mls/hr IV .[id number] [facility]; Protocol Stop: 07/27/23 19:14 Last Admin: 06/28/23 10:28 Dose: 1,800 units/hr, 36 mls/hr Documented By: MYRIAM Co-signed By: NIRALI Titration: 06/28/23 10:28 Dose: Infused Documented By: MYRIAM Co-signed By: INRALI Titration: 06/28/23 09:34 Dose: 1,800 units/hr, 36 mls/hr Documented By: MYRIAM Co-signed By: NIRALI Titration: 06/28/23 07:05 Dose: 1,700 units/hr, 34 mls/hr Documented By: ANDRAE Co-signed By: MYRIAM Titration: 06/28/23 02:32 Dose: 1,700 units/hr, 34 mls/hr Documented By: ANDRAE Co-signed By: IJEOMA Admin: 06/27/23 19:52 Dose: 1,600 units/hr, 32 mls/hr Documented By: ANDRAE Co-signed By: AYDEE Lorazepam (Lorazepam 0.5 Mg Tab) 0.5 mg PO Q6H PRN PRN Reason: anxiety Stop: 07/27/23 19:29 Last Admin: 06/28/23 10:32 Dose: 0.5 mg Documented By: Admin: 06/28/23 03:01 Dose: 0.5 mg Documented By: ANDRAE Metoprolol Tartrate (Metoprolol Tartrate 50 Mg Tab) 50 mg PO Q6H TEVIN Stop: 07/27/23 17:14 Last Admin: 06/28/23 10:28 Dose: 50 mg Documented By: Admin: 06/28/23 09:40 Dose: Not Given Documented By: Admin: 06/28/23 09:40 Dose: Not Given Documented By: Admin: 06/28/23 09:39 Dose: Not Given Documented By: MYRIAM Discontinued Medications Diltiazem HCl (Diltiazem Hcl 5 Mg/Ml 5 Ml Vial) 10 mg IV NOW STA Stop: 06/27/23 11:29 Last Admin: 06/27/23 11:37 Dose: 10 mg Documented By: VANGIE Co-signed By: ERICKA Furosemide (Furosemide Inj 20 Mg/2 Ml Vial) 20 mg IV ONE ONE Stop: 06/27/23 17:10 Last Admin: 06/27/23 17:35 Dose: 20 mg Documented By: FARHEEN Ceftriaxone Sodium (Rocephin) 2,000 mg in 50 mls @ 100 mls/hr IV NOW STA Stop: 06/27/23 13:57 Last Infusion: 06/27/23 14:32 Dose: Infused Documented By: Admin: 06/27/23 14:00 Dose: 100 mls/hr Documented By: MELANIE Sodium Chloride (Nss) 1,000 mls @ 999 mls/hr IV .Q1H1M ONE Stop: 06/27/23 14:29 Last Infusion: 06/27/23 15:35 Dose: Infused Documented By: Admin: 06/27/23 14:01 Dose: 999 mls/hr Documented By: MELANIE Azithromycin 500 mg/ Dextrose 255 mls @ 127.5 mls/hr IV NOW STA Stop: 06/27/23 17:32 Last Infusion: 06/27/23 19:35 Dose: Infused Documented By: Admin: 06/27/23 17:35 Dose: 127.5 mls/hr Documented By: FARHEEN Ceftriaxone Sodium (Rocephin) 2,000 mg in 50 mls @ 100 mls/hr IV ONE STA Stop: 06/27/23 16:17 Last Admin: 06/27/23 19:33 Dose: Not Given Documented By: ANDRAE Ioversol (Optiray 320 125ml) 118 ml IV ONCE ONE Stop: 06/27/23 16:40 Last Admin: 06/27/23 16:40 Dose: 118 ml Documented By: SWETA Lorazepam (Lorazepam 0.5 Mg Tab) 0.5 mg PO ONE STA Stop: 06/27/23 19:31 Last Admin: 06/27/23 19:48 Dose: 0.5 mg Documented By: ANDRAE Metoprolol Tartrate (Metoprolol Tartrate 25 Mg Tab) 25 mg PO Q6H TEVIN Stop: 07/27/23 17:14 Last Admin: 06/28/23 04:50 Dose: 25 mg Documented By: Admin: 06/27/23 23:09 Dose: 25 mg Documented By: Admin: 06/27/23 17:35 Dose: 25 mg Documented By: FARHEEN Miscellaneous (Stat Iv Infusion Titration Per Protocol) 1 each N/A NOW STA Stop: 06/27/23 11:29 Last Admin: 06/27/23 11:38 Dose: Not Given Documented By: ES Potassium Chloride (Potassium Chloride Crtab 20 Meq Tabcr) 40 meq PO NOW STA Stop: 06/27/23 13:28 Last Admin: 06/27/23 14:00 Dose: 40 meq Documented By: MELANIE PG Care Time/CCT Total # of Minutes Spent Total Time Spent with Patient: Total time spent is greater than 50% in coordination of care (as documented) at patient's floor/unit and/or counseling patient:46 [place] [address] IN/OBS CONSULT LVL 4,60M Patient Type New History Comprehensive Exam Detailed Medical Decision Making Moderate Complexity Diagnoses Atrial fibrillation with rapid ventricular response I48.91 Acute systolic CHF (congestive heart failure) I50.21 Primary hypertension I10 Hypertension type: primary hypertension Time Spent (min) 68 (3) Hypertension Hypertension type: primary hypertension Qualified Code(s): I10 - Essential (primary) hypertension
--- NOTE | 2023-06-28 11:08 | XCELERA ---
[id number] [id number]
[2023-06-28] MEDS ORDERED: AZITHROMYCIN 500 MG in DEXTROSE 5% 250 ML IV SCH ×2 (14:00→16:00)
--- NOTE | 2023-06-28 14:28 | Hospitalist Progress Note ---
Date of Service June 28, 2023 Assessment & Plan (1) Atrial fibrillation with RVR: Plan: slowly improving but not optimal as of yet remains on cardizem infusion per protocol metoprolol tartate 25mg q6h increased to 50mg q6h by cardiology despite the above rates at rest still >100 this evening I increased his metoprolol tartrate further to 75mg q6h remains on heparin infusion for anticoagulation, but will stop later tonight and transition to Eliquis 5mg BID appreciate cardiology assistance await echo labs in AM (2) Heart failure with acute decompensation, type unknown: Plan: decompensated CHF 2nd to #1 s/p lasix yesterday with good UOP repeat lasix 20mg IV x 1 this afternoon labs in am serial exams await echo for EF assessment (3) Pneumonia: Plan: question of Leukocytosis of 21 at time of presentation Low-grade fever last week at home Resp BioFire negative Procalcitonin WNL Elevated CRP at 2.32 Sputum culture ordered, pending Rocephin and azithromycin given due to the above factors Unclear if leukocytosis is secondary to a steroid injection patient received in his right shoulder on Friday 06/23 repeat CBC in am if any additional fever, if cough persists, if wbc count remains high, etc -- resume course of PO abx (4) Hypokalemia: Plan: replace serial K levels in light of diuresis (5) Hypertension: Plan: Hold valsartan given the addition of metoprolol tartrate + cardizem IV (6) Asthma: Plan: Hx of asthma as a child, but patient denies requiring an albuterol inhaler in the past 20 years or so NO wheezing at this time (7) Alcohol use disorder: Plan: strong family history of etoh abuse he drinks etoh as well but denies excessive consumption watch closely for any early signs of withdrawal, etc (8) Anxiety: Plan: situational, but he does report prior h/o depression treated with SSRI ativan 1mg prn anxiety (9) Morbid obesity: Admission and Anticipated Discharge Date Admission Date: June 27, 2023 Subjective tele overnight - rates improving, but still not <100; HRs at rest 110-120 still patient reports improved dyspnea, less cough hemoptysis improved/resolved he does not feel palpitations or tachycardia he is anxious to go home was very tearful talking about missing his family states "I have to go home tomorrow" reports strong family history of alcoholism; he denies personal heavy etoh consumption Review of Systems Review of Systems: gen - had low-grade temp at home, none here cv - no chest pain pulm - sputum/hemoptysis improving GI - no abd pain/nausea/emesis Physical Exam Physical Exam: gen - obese, NAD, tearful neck - difficult to examine for JVD due to neck size mouth - MMM heart - tachy, s1 s2, no murmur, irregularly irregular lungs - mild basilar rales, no wheezes, no increased work of breathing abd - soft NT ND BS+ ext - no edema, pulses 2+ b/l psych - anxious, tearful, no signs of etoh withdrawal Results & Data Results & Data Vital Signs (Past 12 Hours) Vital Signs Temp Pulse Pulse Resp BP BP Pulse Ox 06/28/23 11:24 06/28/23 10:49 36.5 C 109 H 15 167/104 H 93 06/28/23 08:02 36.3 C L 117 H 18 153/93 H 91 06/28/23 06:00 80 06/28/23 05:46 111 H 06/28/23 04:52 136 H 139/88 06/28/23 04:11 113 H 06/28/23 03:07 36.8 C 102 H 22 144/99 H 91 O2 Del Method 06/28/23 11:24 Room Air 06/28/23 10:49 Room Air 06/28/23 08:02 Room Air 06/28/23 06:00 06/28/23 05:46 06/28/23 04:52 06/28/23 04:11 06/28/23 03:07 Room Air Laboratory Results Laboratory Results - last 24 hr 06/28/23 06/28/23 06/28/23 01:57 08:48 09:51 Heparin Anti-Xa, Unfract 0.24 L Estimat Average Glucose 105 Hemoglobin A1c 5.3 B-Natriuretic Peptide 300 H 06/28/23 16:09 Heparin Anti-Xa, Unfract 0.25 L Estimat Average Glucose Hemoglobin A1c B-Natriuretic Peptide PG Care Time/CCT Total # of Minutes Spent Total Time Spent with Patient: Total time spent is greater than 50% in coordination of care (as documented) at patient's floor/unit and/or counseling patient: Coding Level of Care Code 31946 SUB INP/OBS CARE 50MIN Diagnoses Atrial fibrillation with RVR I48.91 Heart failure with acute decompensation, type unknown I50.9 Pneumonia J18.9 Hypokalemia E87.6 Primary hypertension I10 Hypertension type: primary hypertension Asthma J45.909 Alcohol use disorder F10.90 Anxiety F41.9 Morbid obesity E66.01 (5) Hypertension Hypertension type: primary hypertension Qualified Code(s): I10 - Essential (primary) hypertension
[2023-06-28] MEDS: POTASSIUM CHLORIDE CRTAB 20 MEQ TABCR PO SCH (14:43)
[2023-06-28] MEDS: FUROSEMIDE INJ 20 MG/2 ML VIAL IV ONE (14:43)
[2023-06-28] MEDS ORDERED: cefTRIAXone SODIUM 2,000 MG/50 ML BAG IV SCH (15:00)
[2023-06-28] MEDS: LORazepam 1 MG TAB PO PRN (16:27)
[2023-06-28 16:54] LABS: ANTI-Xa, UFH(UnfractionatedHep 0.25 IU/ml (0.3-0.7)
[2023-06-28] MEDS: APIXABAN 5 MG TABLET PO SCH (20:01)
[2023-06-28] MEDS: METOPROLOL TARTRATE 25 MG TAB PO SCH (22:19)
[2023-06-29 06:31] LABS: Basophils # (auto) 0.02 K/uL (0.00-0.20); Basophils % (auto) 0.1 %; Eosinophils # (auto) 0.04 K/uL (0.00-0.50); Eosinophils % (auto) 0.3 %; Hematocrit (blood only) 47.5 % (42.0-52.0); Hemoglobin 16.4 g/dl (14.0-18.0); Immature Granulocytes % (auto) 0.7 %; Lymphocytes # (auto) 1.68 K/uL (1.20-3.40); Lymphocytes % (auto) 12.4 %; Mean Corpuscular Hemoglobin 30.3 pg (25.0-34.0); Mean Corpuscular Hgb Conc 34.5 g/dL (32.0-36.0); Mean Corpuscular Volume 87.8 fL (80.0-100.0); Mean Platelet Volume 9.6 fL (9.4-12.4); Monocytes # (auto) 1.04 K/uL (0.11-0.59); Monocytes % (auto) 7.7 %; Neutrophils # (auto) 10.65 K/uL (1.40-6.50); Neutrophils % (auto) 78.8 %; Platelet Count 316 K/uL (130-400); Red Blood Count 5.41 M/uL (4.70-6.10); White Blood Count 13.53 K/ul (4.8-10.8)
[2023-06-29 06:55] LABS: BUN Creatinine Ratio 15.7 (10-20); Creatinine Clr Calc Pharmacy 118.2 ml/min; Est GFR (African American) 103.2 ml/min; Est GFR (Non-African American) 89.1 ml/min; Potassium 3.6 mmol/L (3.5-5.1)
[2023-06-29] MEDS: FUROSEMIDE INJ 20 MG/2 ML VIAL IV ONE (12:00)
[2023-06-29] MEDS: MAGNESIUM OXIDE 400 MG TAB PO SCH (12:27)
--- NOTE | 2023-06-30 05:38 | Discharge Summary ---
Date of Service June 30, 2023 Admission HPI Per Admitting Provider Brayan is a 33-year-old male with PMH of asthma, HTN, anxiety, depression, eczema, and allergic rhinitis. He presented for SOB, fatigue, cough, and chest pressure on 06/26. He claims that it feels like an "elephant is sitting on his chest". Patient reports that his symptoms started on morning 06/22 when he developed a low-grade fever at 99.5 F at home. He also had productive cough (yellow sputum production). Patient then received a steroid injection in his right shoulder on Tuesday. He felt that the fever was going away, but then developed difficulty breathing Tuesday night and by Tuesday it felt like a "elephant was sitting on his chest". Patient also endorses multiple episodes of hemoptysis over the weekend; endorses bright red blood in his cough. He has been taking DayQuil and NyQuil for his symptoms. Patient endorses both SOB at rest and with exertion, and he reports that it feels like he is "running a marathon" whenever he does simple things such as walking. No personal history of atrial fibrillation, NC, DVT/PE, diabetes, stroke, CHF, hyperlipidemia, or vascular disease to his knowledge. Patient only takes valsartan on a regular basis; last took the morning of 06/26. He did not take any Tylenol for his fever. He does occasionally take Benadryl for his allergies and ibuprofen as needed for aches and pains (pain management for his herniated disc). He denies ibuprofen use in the past week. Patient does have a history of asthma as a child, but has not needed his albuterol inhaler in around 20 years. He reports that coughing hurts his lower rib cages bilaterally. 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 Patient also has 2 children at home (ages 10 and 13 years old). No supplemental oxygen use at home. No CPAP at night, but the patient does have a sleep study upcoming. Patient is a former tobacco cigarette smoker, but quit 14 years ago; he also used to chew snuff. Patient does endorse alcohol use, with his last drink being on Friday 06/23; he reports that he drank 2 shots of whiskey and some beers; sometimes drinks multiple days per week. Patient is tachycardic at 148 bpm at time of admission; SpO2 93% on RA. ED course: Diltiazem 10 mg IV Diltiazem drip IV NSS 1000 mL IV ROS: Patient endorses low-grade fever (resolved), chills, productive cough (yellow), hemoptysis, chest pressure, SOB at rest and with exertion, pleuritic CP, and wheezing. Patient denies dizziness, lightheadedness, ROSARIO, changes in vision, chest pain, chest palpitations, abdominal pain, N/V/D, change in urinary/bowel habits, burning with urination, blood in stool, or N/T/pain in arms or legs. Discharge Exam gen - obese, NAD, tearful neck - difficult to examine for JVD due to neck size mouth - MMM heart - tachy, s1 s2, no murmur, irregularly irregular lungs - mild basilar rales, no wheezes, no increased work of breathing abd - soft NT ND BS+ ext - no edema, pulses 2+ b/l psych - anxious, tearful, no signs of etoh withdrawal Discharge Data Allergies Allergy/AdvReac Type Severity Reaction Status Date / Time No Known Allergies Allergy Mild Verified 06/27/23 13:52 Consultations 06/27/23 13:16 ED Decision to Admit Stat 06/27/23 19:32 Consult Cardiology Routine Ordered Studies 06/27/23 15:25 CT angio chest PE protocol Stat Hospital Course (1) Atrial fibrillation with RVR: slowly improving but not optimal as of yet remains on cardizem infusion per protocol metoprolol tartate 25mg q6h increased to 50mg q6h by cardiology despite the above rates at rest still >100 this evening I increased his metoprolol tartrate further to 75mg q6h remains on heparin infusion for anticoagulation, but will stop later tonight and transition to Eliquis 5mg BID appreciate cardiology assistance await echo labs in AM (2) Heart failure with acute decompensation, type unknown: decompensated CHF 2nd to #1 s/p lasix yesterday with good UOP repeat lasix 20mg IV x 1 this afternoon labs in am serial exams await echo for EF assessment (3) Pneumonia: question of Leukocytosis of 21 at time of presentation Low-grade fever last week at home Resp BioFire negative Procalcitonin WNL Elevated CRP at 2.32 Sputum culture ordered, pending Rocephin and azithromycin given due to the above factors Unclear if leukocytosis is secondary to a steroid injection patient received in his right shoulder on Friday 06/23 repeat CBC in am if any additional fever, if cough persists, if wbc count remains high, etc -- resume course of PO abx (4) Hypokalemia: replace serial K levels in light of diuresis (5) Hypertension: Hold valsartan given the addition of metoprolol tartrate + cardizem IV (6) Asthma: Hx of asthma as a child, but patient denies requiring an albuterol inhaler in the past 20 years or so NO wheezing at this time (7) Alcohol use disorder: strong family history of etoh abuse he drinks etoh as well but denies excessive consumption watch closely for any early signs of withdrawal, etc (8) Anxiety: situational, but he does report prior h/o depression treated with SSRI ativan 1mg prn anxiety (9) Morbid obesity: (10) Acute systolic CHF (congestive heart failure): Discharge Plan Discharge Items Patient Disposition: Home - Self-Care Reason For Visit: SHORTNESS OF BREATH, PRODUCTIVE COUGH Discharge Diagnosis: 1. rapid atrial fibrillation - improved, back in normal rhythm 2. systolic congestive heart failure - likely due to uncontrolled atrial fibrillation 3. fluid in lungs ("pulmonary edema") due to #2 - resolved 4. high suspicion of sleep apnea - sleep study pending 5. high blood pressure 6. alcohol use Activity: As commented below Activity Comment: light activities only; nothing strenuous Lifting Comment: no more than 20 pounds Exercise/Sports: Wait until after follow-up appointment Non-emergency contact: Primary Care Provider and [employer] Call non-emergency contact if: you have any medication questions and your symptoms worsen Follow-up/Referrals: Trevor Trent PA-C [Physician Magazine Publisher] - (within 1 week; cardiology office will call you with appointment date & time ) Janell Boyd CRNP [Primary Care Provider] - (please schedule a follow up PCP appointment within 1 week of discharge. thank you) Diet: Heart Healthy Fluids: 1800ml (7 cups) Addtl Attending Provider Instructions: Mr Baez, You were hospitalized due to atrial fibrillation. When you arrived your pulse was very fast - over 175 beats per minute. With addition of various medicines your pulse improved over time. Fortunately, on 06/29/23, you converted back to normal rhythm. It is very possible, however, that you will go back into atrial fibrillation at some point in the future. It is thought that the atrial fibrillation led to your congestive heart failure (see handouts on atrial fibrillation & heart failure). The ejection fraction of the heart, or heart pumping "number," is typically about 60-65% in most individuals. Down to ~50% is still considered normal. Your ejection fraction is 40-45%. When the heart is weaker than normal fluid can back up into the lungs making it hard to breath. Fluid in the lungs can mimic bronchitis/infection. We did not see any infection while you were here. With proper medicines, control of the atrial fibrillation, and lifestyle changes the ejection fraction very well may improve back to normal over the next few months. The cardiologists will monitor this carefully in the heart clinic. Recommendations - 1. Congestive heart failure medicines - * metoprolol succinate 100mg tablets -- take 1.5 tablets twice daily every day, first dose at bedtime tonight * RESUME your valsartan once daily as previous; start this tomorrow morning * furosemide (diuretic/water pill) -- 20mg each morning * potassium & magnesium supplements once daily -- start tomorrow morning 2. To help thin the blood to prevent clot formation in your heart (from atrial fibrillation) take ELIQUIS 5mg twice daily every day, first dose TONIGHT 3. Limit salt intake to no more than 2000mg in a 24-hour period. See handout. Remember the "F's" -- fried foods, fast foods, frozen TV dinners -- these all contain lots of salt. Canned soups, certain deli meats, beef jerkey, and other processed foods also contain large amounts of salt. 4. Limit fluid intake to no more than about 9517-8884 ml in a 24-hour period. This number includes all types of beverages consumed. 5. Try to limit alcohol intake to NO MORE than 1 alcoholic drink/day or, even better, none at all. Drinking alcohol with Eliquis is discouraged as well due to increased risk of bleeding. 6. Check your weight EVERY MORNING on the same scale - see parameters below. 7. We will be mailing a heart monitor to your home -- it should arrive within the next 7-10 days. It will come with instructions on its use. Results get sent to the framing manager. This will be to monitor for recurrent atrial fibrillation. 8. Try to check your blood pressure & pulse rate (heart rate) at least once a day. If you notice your heart rate is consistently greater than 100 there is a high likelihood you are back in atrial fibrillation. Follow-up - see separate section Return to [facility] if - * you have fevers over 100 degrees * you have worsening shortness of breath * you have chest pains * you have concerns you are back in atrial fibrillation * you feel dizzy or lightheaded * any other concerns It was our pleasure to care for you! Addtl Cable Tool Operator Provider Instructions: Congestive Heart Failure Instructions - Call 911 and go to the Emergency Room if: * You have tightness or pain in your chest that does not go away with rest or Nitroglycerin * You are very short of breath even with rest Call your doctor if any of the following symptoms or problems start or get worse: * Shortness of breath or difficulty breathing * Wake up at night short of breath * Chest pain * Cough * Swelling of your hands, fee, or legs * More fatigued or tired with your normal activity * Palpitations - sudden fast heart beats WEIGHT * Weigh yourself every morning after using the bathroom. * Use the same scale. * Wear the same amount of clothing. * Write your weight down on your chart. * Call your framing manager or your family doctor if you gain more than 3 pounds in 1-2 days. This is typically the first sign of fluid weight gain from congestive heart failure. Don't delay if you see weight gains - call your doctors. MEDICATIONS * Use this discharge instruction sheet for instructions. * Take your medications at the time your doctor ordered. * Do not skip a dose of your medicines. * If you miss a dose of medicine, take as soon as possible, but DO NOT DOUBLE A DOSE. * Read your medicine information when you get home. * Know all of the side effects of your medicine. * Call your doctor's office if you have any side effects. * Be sure all of your doctors know what medicine and herbs you take (including cold, flu, and herbal medicine). * Pain Medicine: If you do not get relief from your pain, please call your doctor for help. Take the following with you to your follow-up doctor appointments: * Weight Chart * Medication List * List of questions Do not drink excessive alcohol, beer or wine. Pending Studies at Discharge: No Stand-Alone Forms: My [facility], Work/School Release, Smoking Cessation Medications and DC Order Prescriptions: New Eliquis 5 mg Tablet 5 mg PO BID Qty: 60 5RF potassium chloride 20 mEq Tablet,Er Particles/Crystals 20 meq PO DAILY Qty: 30 2RF magnesium oxide 400 mg (241.3 mg magnesium) Tablet 400 mg PO QAM Qty: 30 2RF metoprolol succinate 100 mg tablet extended release 24 hr 150 mg PO BID Qty: 90 2RF furosemide [Lasix] 20 mg tablet 20 mg PO QAM Qty: 30 2RF Continued valsartan 160 mg tablet 160 mg PO DAILY Qty: 30 2RF triamcinolone acetonide 0.5 % ointment 1 applic topical BID PRN (Reason: Skin Irritation) Qty: 15 2RF Rx Instructions: Limit to 2 weeks, may repeat if needed Discharge Orders: Discharge Order (Routine); Ordered 06/29/23 Ordered By: Kiran Antonio/Other Patient Handouts: Apixaban Oral Tablet, What Is Heart Failure, Cardiomyopathy Dc, AFib Preventing Stroke, AFib, ED Low-Salt Diet Admission Data Admit Date/Time: 06/27/23 14:02 Attending Provider: Kiran Morris Admit Provider: Kiran Rogers Primary Care Provider: Janell Boyd Other Providers: Kiran Rogers; Richard Buchanan Other Interventions: Discharge Summary Assessment (RN) Last Done: 06/29/23 18:13 Coding Diagnoses Atrial fibrillation with RVR I48.91 Heart failure with acute decompensation, type unknown I50.9 Pneumonia J18.9 Hypokalemia E87.6 Primary hypertension I10 Hypertension type: primary hypertension Asthma J45.909 Alcohol use disorder F10.90 Anxiety F41.9 Morbid obesity E66.01 Acute systolic CHF (congestive heart failure) I50.21
== END 2023-06-29 19:23 | disposition home or self-care (01) | DRG 308 ==
LOC: ED 11:09 → SUATTDRO 14:02 → 2S 14:02